=== PATIENT | male | born 1955 | race Caucasian/White ===

== ENCOUNTER 2021-10-28 07:21 | Outpatient (REF) | payer BC, SELFPAY ==
--- NOTE | ~2021-10-28 | XR_ITS ---
EXAMINATION: XR pelvis 1-2V CLINICAL INFORMATION: Reason for Exam M25.559 - Pain in unspecified hip COMPARISON: None. TECHNIQUE: One view of the pelvis XR/XR pelvis 1-2V FINDINGS/IMPRESSION: * No acute fracture or dislocation on this limited single view. * Moderate degenerative changes of the bilateral hips with loss of superolateral joint space. * Moderate degenerative changes of the right sacroiliac joint with loss of joint space.
== END 2021-10-28 07:22 | disposition home or self-care (01) ==
LOC: HO.HOSX 07:21
PROVIDERS: Visit Provider Orthopaedic Surgery
DX: M70.62 Trochanteric bursitis, left hip (principal); M16.12 Unilateral primary osteoarthritis, left hip
CPT/HCPCS: 72170

== ENCOUNTER 2022-05-08 10:19 | Outpatient (REF) | payer BC, SELFPAY ==
--- NOTE | ~2022-05-08 | XR_ITS ---
EXAMINATION: XR BILATERAL AP KNEE STANDING AND LEFT KNEE CLINICAL INFORMATION: Left knee pain. COMPARISON: None TECHNIQUE: AP bilateral knee and left knee 2 views. FINDINGS: AP BILATERAL KNEE: There is mild reduction in medial compartment joint space both knees. No bony erosive changes. There are no loose bodies. No joint effusion. LEFT KNEE: On the lateral view there is a small bone fragment still attached to the anterior tibial plateau question enthesophyte. No acute fracture, joint effusion or bony erosive changes seen. There is mild reduction the patellofemoral compartment joint space. A large calcified fabella is noted. XR/XR knee standing BI IMPRESSION: 1. Mild degenerative changes medial compartment both knees and mild degenerative changes patellofemoral compartment left knee. 2. Small bone fragment adjacent to anterior tibial plateau on the lateral view likely enthesophyte. No acute fracture, joint effusion or loose bodies seen. 3. There is a large calcified fabella or soft tissue calcification posterior knee.
--- NOTE | ~2022-05-08 | XR_ITS ---
EXAMINATION: XR BILATERAL AP KNEE STANDING AND LEFT KNEE CLINICAL INFORMATION: Left knee pain. COMPARISON: None TECHNIQUE: AP bilateral knee and left knee 2 views. FINDINGS: AP BILATERAL KNEE: There is mild reduction in medial compartment joint space both knees. No bony erosive changes. There are no loose bodies. No joint effusion. LEFT KNEE: On the lateral view there is a small bone fragment still attached to the anterior tibial plateau question enthesophyte. No acute fracture, joint effusion or bony erosive changes seen. There is mild reduction the patellofemoral compartment joint space. A large calcified fabella is noted. XR/XR knee LT 2V IMPRESSION: 1. Mild degenerative changes medial compartment both knees and mild degenerative changes patellofemoral compartment left knee. 2. Small bone fragment adjacent to anterior tibial plateau on the lateral view likely enthesophyte. No acute fracture, joint effusion or loose bodies seen. 3. There is a large calcified fabella or soft tissue calcification posterior knee.
== END 2022-05-08 10:20 | disposition home or self-care (01) ==
LOC: HO.HOSX 10:19
PROVIDERS: Visit Provider Orthopaedic Surgery
DX: M17.12 Unilateral primary osteoarthritis, left knee (principal); E11.9 Type 2 diabetes mellitus without complications
CPT/HCPCS: 20610; 73560; 73565; J1100

== ENCOUNTER → 2022-08-10 13:08 | Outpatient (BNVA) | payer BC, SELFPAY | PROVIDERS: PCP Internal Medicine; Visit Provider Orthopaedic Surgery | DX: Z13.89 Encounter for screening for other disorder (principal) ==

== ENCOUNTER 2023-01-16 15:13 | Outpatient (REF) | payer OTHER, BC, SELFPAY ==
--- NOTE | ~2023-01-16 | XR_ITS ---
EXAMINATION: Pre-MRI orbits. COMPARISON: None. HISTORY: History of metal in the eyes many years ago technique: 3 views. FINDINGS: There are no radiopaque metallic foreign body seen in the orbits. The soft tissues are normal. The paranasal sinuses and mastoid air cells are well aerated. There is dental hardware noted. XR/XR pre mri screening IMPRESSION: No radiopaque metallic foreign body seen in the orbits..
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
== END 2023-01-16 15:14 | disposition home or self-care (01) ==
LOC: HO.MRI 15:13
PROVIDERS: PCP Internal Medicine; Visit Provider Orthopaedic Surgery
DX: M23.92 Unspecified internal derangement of left knee (principal)
CPT/HCPCS: 73721

== ENCOUNTER 2023-01-25 09:30 | Outpatient (AMB) | payer BC, SELFPAY ==
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
== END 2023-01-25 11:03 | disposition home or self-care (01) ==
PROVIDERS: PCP Internal Medicine; Visit Provider Orthopaedic Surgery
DX: S83.242A Other tear of medial meniscus, current injury, left knee, initial encounter (principal)
CPT/HCPCS: 99214

== ENCOUNTER → 2023-01-25 09:30 | Outpatient (BNVA) | payer BC, SELFPAY | PROVIDERS: PCP Internal Medicine; Visit Provider Orthopaedic Surgery ==

== ENCOUNTER 2023-02-26 08:28 | Outpatient (AMB) | payer BC, SELFPAY ==
[2023-02-26 08:31] VITALS: BMI 34.7
--- NOTE | 2023-02-26 08:31 | A.OFFVIS_ITS ---
Intake Vital Signs 02/26/23 08:31 Height 5 ft 8 in Weight 228 lb BMI 34.7 Intake Visit Reasons: Pre-Op LT knee 03/07/23NE Intake Note: Moreno is a 67 year old male who presents today for a pre op appointment of left knee 03/07/23. Pain management agreement signed and reviewed Allergies No Known Allergies Allergy (Verified 02/26/23 08:36) HPI HPI Comments History of Present Illness Details Mr Holguin presents to the office today for preop visit. He is scheduled for left knee arthroscopy with Dr. Hu. He continues to have ongoing pain and difficulty with ambulation in the left knee, which is affecting his quality of life; therefore, he has elected to move forward with surgery. [facility] Medical History Diabetes Hyperlipidemia Hypertension Internal derangement of left knee Surgical History Hx of cholecystectomy Social History Patient Tobacco Use Status: Former Tobacco user Quit Date: over 20 years ago Current occupational status: employed Current occupation: Car Sales Review of Systems Const All systems reviewed & are unremarkable except as noted in HPI and below Physical Exam Vital Signs: BMI result Body Mass Index 34.7 Const General: cooperative and no acute distress Orientation/consciousness: patient oriented x3 HEENT Head: Yes normocephalic and Yes atraumatic Eyes General: appearance normal, both eyes and all related structures EOM: EOMs intact bilaterally Neck Neck: Yes normal visual inspection and Yes no lymphadenopathy Resp Effort & Inspection: normal respiratory effort and able to speak in complete sentences Cardio Jugular venous distension: no JVD Rate: regular rate Peripheral pulses: Peripheral pulses 2+ throughout GI Inspection: Yes normal to inspection Palpation (GI): Soft to palpation Skin General skin exam: no rashes or lesions noted Rashes: no rashes Neuro General: patient oriented x3 Extrem Other: Left knee with 10 deg loss of terminal extension + medial Steinmen's Medial joint line TTP + gait antalgia Psych Appearance: grossly normal Mental Status: mental status grossly normal Affect: normal affect Attitude: cooperative Assessment & Plan Assessment & Plan (1) Medial meniscus tear: Code(s): S83.249A - Other tear of medial meniscus, current injury, unspecified knee, initial encounter Qualifiers: Tear current or old: current Encounter type: subsequent encounter Meniscus tear of knee type: other type Laterality: left Qualified Code(s): S83.242D - Other tear of medial meniscus, current injury, left knee, subsequent encounter Plan I discussed the extent of the injury to the patient and options available which include surgical intervention. I explained the procedure in detail along with the length of recovery and rehab course. I explained the risk, benefits and alternatives. Risk including, but not limited to infection, blood clots, bleeding, ongoing pain and stiffness. I answered all their questions and with their understanding they have consented to move forward with left knee arthroscopy with Dr. Hu. The patient will be booked accordingly. Patient Instructions: Scribed for Tez Kessler PA-C, by Isac Ramey site medical director, on 02/26/2023 at 8:30 AM [facility]. Tez Pickett PA-C, have personally reviewed and agree with the information entered by the scribe. Coding Level of Care Code Est Pt Level 3 (72597) Diagnoses Other tear of medial meniscus of left knee as current injury, subsequent encounter S83.242D Tear current or old: current Encounter type: subsequent encounter Meniscus tear of knee type: other type Laterality: left
== END 2023-02-26 09:04 | disposition home or self-care (01) ==
PROVIDERS: PCP Internal Medicine; Visit Provider Physician Assistant
DX: S83.242D Other tear of medial meniscus, current injury, left knee, subsequent encounter (principal)
CPT/HCPCS: 99024

== ENCOUNTER → 2023-02-26 08:28 | Outpatient (BNVA) | payer BC, SELFPAY | PROVIDERS: PCP Internal Medicine; Visit Provider Physician Assistant ==

== ENCOUNTER 2023-03-07 07:28 | Day surgery (SDC) | payer OTHER, BC, SELFPAY ==
[2023-03-05 10:59] VITALS: BMI 34.7
--- NOTE | 2023-03-06 08:53 | P.CONAN_ITS ---
Documented by User: Ema Bell NP 03/06/23 08:56 HPI - Anesthesia Eval Consult details Narrative: 67yo M for Left Knee Arthroscopy PMFSH Active Problems Active Problems: All Active Problems (Updated 02/26/23 @ 08:52 by Tez Kessler PA-C) Medial meniscus tear (Acute) Internal derangement of left knee (Acute) Diabetes mellitus (Acute) Osteoarthritis of left knee (Acute) Greater trochanteric bursitis of left hip (Acute) Osteoarthritis of left hip (Acute) Past Medical History Medical History (Updated 03/07/23 @ 08:55 by Heather Finney) Diverticulosis Severe obesity Seasonal allergies Plaque psoriasis Pulmonary nodules Hypercholesterolemia GERD (gastroesophageal reflux disease) Depression CAD (coronary artery disease) CKD (chronic kidney disease), stage III KALE (obstructive sleep apnea) Heart attack Internal derangement of left knee Hyperlipidemia Hypertension Diabetes Surgical History Surgical History (Updated 03/07/23 @ 08:55 by Heather Finney) H/O heart artery stent Hx of cholecystectomy Social History Social History Patient Tobacco Use Status: Former Tobacco user Quit Date: 1989 Tobacco use type: Cigarette Smoked in Last 30 Days: No Use of substances other than those prescribed or required for medical reasons: No Are you DNR?: No Advance Directives: No Advance Directives Information Provided: Yes Current occupational status: employed Current occupation: [employer] Allergies Allergy/AdvReac Type Severity Reaction Status Date / Time No Known Allergies Allergy Verified 03/07/23 07:44 Home Medications Medication Instructions Recorded Confirmed Last Taken Type adalimumab 40 mg/0.4 mL 40 mg subcut Q2W 10/28/21 03/07/23 Unknown History subcutaneous pen kit (Humira(CF) Pen) aspirin 81 mg tablet,delayed 81 mg PO DAILY 10/28/21 03/07/23 03/06/23 History release atorvastatin 40 mg tablet 40 mg PO DAILY 10/28/21 03/07/23 Unknown History carvedilol 25 mg tablet 25 mg PO BID 10/28/21 03/07/23 03/07/23 History empagliflozin 25 mg tablet 25 mg PO DAILY 10/28/21 03/07/23 Unknown History (Jardiance) lisinopril 20 mg tablet 20 mg PO DAILY 10/28/21 03/07/23 Unknown History pantoprazole 40 mg tablet,delayed 40 mg PO DAILY 10/28/21 03/07/23 03/07/23 History release insulin glargine 100 unit/mL (3 50 unit subcut BEDTIME 05/08/22 03/07/23 03/06/23 09:30 History mL) subcutaneous pen (Lantus 30 units Solostar U-100 Insulin) insulin lispro 100 unit/mL subcut DIRECTED 05/08/22 Unknown History subcutaneous pen (Humalog KwikPen (U-100) Insulin) Exam Exam Date and Time: March 06, 2023 0853 Height,Weight and Vital Signs: Height 5 ft 8 in Weight 103.419 kg Assessment and Plan Assessment Anesthesia Assessment: Chart Reviewed Documented by User: Mychal Henderson MD 03/07/23 08:56 [facility] Past Medical History Medical History (Updated 03/07/23 @ 08:55 by Heather Finney) Diverticulosis Severe obesity Seasonal allergies Plaque psoriasis Pulmonary nodules Hypercholesterolemia GERD (gastroesophageal reflux disease) Depression CAD (coronary artery disease) CKD (chronic kidney disease), stage III KALE (obstructive sleep apnea) Heart attack Internal derangement of left knee Hyperlipidemia Hypertension Diabetes Family History Family history of problems with anesthesia: No Surgical History Surgical History (Updated 03/07/23 @ 08:55 by Heather Finney) H/O heart artery stent Hx of cholecystectomy History of Problems with Anesthesia: No Social History Social History Patient Tobacco Use Status: Former Tobacco user Quit Date: 1989 Tobacco use type: Cigarette Smoked in Last 30 Days: No Use of substances other than those prescribed or required for medical reasons: No Are you DNR?: No Advance Directives: No Advance Directives Information Provided: Yes Current occupational status: employed Current occupation: Car [employer] Meds Allergies Allergy/AdvReac Type Severity Reaction Status Date / Time No Known Allergies Allergy Verified 03/07/23 07:44 Home Medications Medication Instructions Recorded Confirmed Last Taken Type adalimumab 40 mg/0.4 mL 40 mg subcut Q2W 10/28/21 03/07/23 Unknown History subcutaneous pen kit (Humira(CF) Pen) aspirin 81 mg tablet,delayed 81 mg PO DAILY 10/28/21 03/07/23 03/06/23 History release atorvastatin 40 mg tablet 40 mg PO DAILY 10/28/21 03/07/23 Unknown History carvedilol 25 mg tablet 25 mg PO BID 10/28/21 03/07/23 03/07/23 History empagliflozin 25 mg tablet 25 mg PO DAILY 10/28/21 03/07/23 Unknown History (Jardiance) lisinopril 20 mg tablet 20 mg PO DAILY 10/28/21 03/07/23 Unknown History pantoprazole 40 mg tablet,delayed 40 mg PO DAILY 10/28/21 03/07/23 03/07/23 History release insulin glargine 100 unit/mL (3 50 unit subcut BEDTIME 05/08/22 03/07/23 03/06/23 09:30 History mL) subcutaneous pen (Lantus 30 units Solostar U-100 Insulin) insulin lispro 100 unit/mL subcut DIRECTED 05/08/22 Unknown History subcutaneous pen (Humalog KwikPen (U-100) Insulin) Exam Airway Mallampati Class: III TM Dist: >3cm Neck ROM: Limited Heart: rrr Lungs: cta Assessment and Plan Assessment Anesthesia Assessment: Anesthesia Plan Discussed Final Anesthetic Review Family History of Problems with Anesthesia: No History of Problems with Anesthesia: No NPO: Yes ASA Class: III Final Preanesthetic Review: No Changes in Pt Med Stat, Meds/Allgs Chart Reviewed, Consent Obtained/Reviewed and Anes Risks/Benef Reviewed Patient Risk: Intermediate Procedure Risk: Low Anesthetic Plan Anesthetic Plan: GA and Agree w/ Assess. and Plan Disposition: Standard PACU
[2023-03-07] VITALS (9 sets, daily range): BP systolic 109–141; BP diastolic 43–65; PULSE 55–65; RESP 14–18; TEMP 36.4–37.2; O2SAT 93–99; BMI 35.9
[2023-03-07 07:54] LABS: Glucose, Whole Blood 141 mg/dL (60-115)
[2023-03-07] MEDS: Lactated Ringers 1,000 ML 100 ML IVCONT (08:52)
--- NOTE | 2023-03-07 09:29 | MHC.SHP ---
Pre-Procedural Eval Section A Date of Service: 03/07/23 The patient is an INPATIENT: No Changes since office visit: No Cold of Flu in the past 2 weeks, No New Medical Problems, No Changes in Medication and No Patient answered all questions The History & Physical has been completed within 30 days and I have reviewed it.: Yes Section B Chief Complaint: Other tear of medial meniscus, current injury, uns Allergies: Allergies Allergy/AdvReac Type Severity Reaction Status Date / Time No Known Allergies Allergy Verified 03/07/23 07:44 Plan I have reviewed the history and physical and performed a pertinent physical examination on my patient. No changes have occurred unless specified. Time Spent With Patient Time: Total time managing care of this patient today ____ minutes.
--- NOTE | 2023-03-07 11:08 | P.BOP_ITS ---
Brief Operative Note Date of Service: 03/07/23 Pre-op diagnosis: left knee MMT Post-op diagnosis: other (1) left knee MMT 2) left knee OA) Procedure: Left knee partial medial meniscectomy and chondroplasty Surgeon: Les Hu MD Anesthesia: GETA and local Was an Dealer Relationship Manager used for this Procedure?: No Estimated blood loss (mL): 2 Tourniquet time (min): 30 IV fluids (mL): 500 Pathology: none sent Condition: stable Disposition: PACU
--- NOTE | 2023-03-08 13:44 | P.OP_ITS ---
Operative Note Operative Note Date of Service: 03/07/23 Narrative: Date of Service: 03/07/23 Pre-op diagnosis: left knee MMT Post-op diagnosis: other (1) left knee MMT 2) left knee OA) Procedure: Left knee partial medial meniscectomy and chondroplasty Surgeon: Les Hu MD Anesthesia: GETA and local Was an Semiconductor Dies Loader used for this Procedure?: No Estimated blood loss (mL): 2 Tourniquet time (min): 30 IV fluids (mL): 500 Pathology: none sent Condition: stable Disposition: PACU Procedure in detail: Patient was brought to the operating room placed supine on the arthroscopic table and prepped and draped in standard sterile fashion. A time-out was called to identify proper site proper procedure proper surgeon and IV antibiotics per weight were administered. I began by exsanguinating the limb and insufflating tourniquet to 300 mm Hg. Then made a standard anterolateral stab incision. The knee was insufflated with water and 30 degree arthroscope was placed. There was grade 1 fibrillations of the patella but overall suprapatellar pouch was plane and the gutters were clean. I descended into the medial compartment where I made my medial portal under direct visualization. There was obvious of complex tear of the body and posterior horn of the medial meniscus. The root was intact and there was grade 3-4 changes of central portion of the MFC (~1 x 1.5 cm) . I used a combination of biter shaver and cautery to remove unstable portions of the meniscus. Approximately 30% meniscal volume was removed. Once I was satisfied with this the ACL was examined and found to be intact and the lateral compartment also was without the need for intervention. I then removed all instrumentation and closed the portals with skin glue. 25 mL of 2% Marcaine with epinephrine was injected into the joint and the surrounding soft tissues. Patient was then placed in sterile dressing extubated brought recovery room stable condition. There were no known complications.
== END 2023-03-07 12:30 | disposition home or self-care (01) ==
LOC: HO.SSS 07:29
PROVIDERS: PCP Internal Medicine; Visit Provider Orthopaedic Surgery
PROC: (CPT 29870; principal; 2023-03-07 09:40)
DX: S83.232A Complex tear of medial meniscus, current injury, left knee, initial encounter (principal); M17.12 Unilateral primary osteoarthritis, left knee; M25.562 Pain in left knee; R26.2 Difficulty in walking, not elsewhere classified; X58.XXXA Exposure to other specified factors, initial encounter; Y93.9 Activity, unspecified; Y92.9 Unspecified place or not applicable; Y99.8 Other external cause status; E11.22 Type 2 diabetes mellitus with diabetic chronic kidney disease; I12.9 Hypertensive chronic kidney disease with stage 1 through stage 4 chronic kidney disease, or unspecified chronic kidney disease; N18.30 Chronic kidney disease, stage 3 unspecified; G60.0 Hereditary motor and sensory neuropathy; I25.10 Atherosclerotic heart disease of native coronary artery without angina pectoris; I25.2 Old myocardial infarction; E78.5 Hyperlipidemia, unspecified; Z95.5 Presence of coronary angioplasty implant and graft; G47.33 Obstructive sleep apnea (adult) (pediatric); L40.0 Psoriasis vulgaris; Z79.620 Long term (current) use of immunosuppressive biologic; Z79.4 Long term (current) use of insulin; Z87.891 Personal history of nicotine dependence
CPT/HCPCS: 29881; 82947; J0171; J0690; J1100; J2405; J2795; J3010

== ENCOUNTER → 2023-03-07 07:28 | Outpatient (BNV) | payer BC, SELFPAY | PROVIDERS: PCP Internal Medicine; Visit Provider Orthopaedic Surgery | DX: S83.232A Complex tear of medial meniscus, current injury, left knee, initial encounter (principal) | CPT/HCPCS: 29881 ==

== ENCOUNTER 2023-03-12 13:06 | Outpatient (AMB) | payer BC, SELFPAY ==
--- NOTE | 2023-03-12 13:10 | MHC.OFFVIS ---
Intake Intake Visit Reasons: PO LT knee 03/07/23NE Intake Note: Moreno a 67 year old male who presents today for a post operative left knee , DOS 03/07/23. Patient reports having soreness and stiffness in calf area. He has complaints of lower back, stating possibly caused by him limping. Finds relief with pain medication. Allergies No Known Allergies Allergy (Verified 03/12/23 13:22) HPI PO LT knee 03/07/23NE HPI Details Mr. Holguin is a 67-year-old male who presents the office today status post left knee arthroscopy for partial medial meniscectomy with chondroplasty performed by Dr. Hu on 03/07/2023. Patient overall states that he is doing very well. Does have slight discomfort in the knee located along the medial aspect. Reports that he has had calf pain and charley horse sensations/cramping. [facility] Medical History (Updated 03/07/23 @ 08:55 by Heather Finney) Diverticulosis Severe obesity Seasonal allergies Plaque psoriasis Pulmonary nodules Hypercholesterolemia GERD (gastroesophageal reflux disease) Depression CAD (coronary artery disease) CKD (chronic kidney disease), stage III KALE (obstructive sleep apnea) Heart attack Internal derangement of left knee Hyperlipidemia Hypertension Diabetes Surgical History H/O heart artery stent Hx of cholecystectomy Social History Patient Tobacco Use Status: Former Tobacco user Quit Date: 1989 Tobacco use type: Cigarette Current occupational status: employed Current occupation: Car Sales Physical Exam Const General: cooperative, healthy appearing and no acute distress Resp Effort & Inspection: normal respiratory effort and able to speak in complete sentences Cardio Rate: regular rate Peripheral pulses: Peripheral pulses 2+ throughout GI Palpation (GI): Soft to palpation Skin Lesions: no lesions Rashes: no rashes Extrem Other: Left knee incision sites clean dry and intact. Mild effusion. Range of motion 0-110 degrees. Calf is supple however tenderness with calf squeeze and positive Homans. NVI. Assessment & Plan Assessment & Plan (1) Medial meniscus tear: Code(s): S83.249A - Other tear of medial meniscus, current injury, unspecified knee, initial encounter Qualifiers: Tear current or old: current Encounter type: subsequent encounter Meniscus tear of knee type: other type Laterality: left Qualified Code(s): S83.242D - Other tear of medial meniscus, current injury, left knee, subsequent encounter Plan: Mr. Holguin is a 67-year-old male who presents the office today status post left knee arthroscopy for partial medial meniscectomy with chondroplasty performed by Dr. Hu on 03/07/2023. Patient overall states that he is doing very well. Does have slight discomfort in the knee located along the medial aspect. Reports that he has had calf pain and charley horse sensations/cramping. Patient reports that he has appointment with physical therapy beginning on Sunday03-14-23. He will attend to work on range of motion. In regards the patient's calf pain and cramping a stat ultrasound has been ordered to rule out DVT. An appointment has been october before the patient has left the office today. Follow up with Orthopedics in 4 weeks sooner if needed for [id number] check. Orders: Orders US venous duplex LE Today S83.249A - Other tear of medial meniscus, current injury, unspecified knee, initial encounter Coding Level of Care Code Global (12689) Diagnoses Other tear of medial meniscus of left knee as current injury, subsequent encounter S83.242D Tear current or old: current Encounter type: subsequent encounter Meniscus tear of knee type: other type Laterality: left
== END 2023-03-12 14:31 | disposition home or self-care (01) ==
PROVIDERS: PCP Internal Medicine; Visit Provider Physician Assistant
DX: S83.242D Other tear of medial meniscus, current injury, left knee, subsequent encounter (principal)
CPT/HCPCS: 99024

== ENCOUNTER → 2023-03-12 13:06 | Outpatient (BNVA) | payer BC, SELFPAY | PROVIDERS: PCP Internal Medicine; Visit Provider Physician Assistant ==

== ENCOUNTER 2023-03-12 14:12 | Outpatient (REF) | payer OTHER, BC, SELFPAY ==
--- NOTE | ~2023-03-12 | US_ITS ---
EXAMINATION: US VENOUS ULTRASOUND WITH DOPPLER LOWER EXTREMITY, LEFT CLINICAL INFORMATION: Other tear medial meniscus, current injury, unspecified knee Status post knee arthroscopy 03/07/2023. Calf pain and swelling. Positive Homans sign. COMPARISON: None available. TECHNIQUE: Ultrasound of the deep veins is performed from the hip to the calf with compression sonography and color and pulse Doppler assessment. Spectral analysis with color-flow imaging is performed. FINDINGS: There is normal venous compression and respiratory variation and augmented flow. The visualized common femoral vein, superficial femoral vein, profunda femoral vein, popliteal vein, and the trifurcation region shows no evidence of deep venous thrombosis. There is no significant popliteal fossa cyst. US/US venous duplex LE LT IMPRESSION: No DVT demonstrated in the left lower extremity.
== END 2023-03-12 14:13 | disposition home or self-care (01) ==
LOC: HO.US 14:12
PROVIDERS: PCP Internal Medicine; Visit Provider Physician Assistant
DX: R60.0 Localized edema (principal); S83.242A Other tear of medial meniscus, current injury, left knee, initial encounter
CPT/HCPCS: 93971

== ENCOUNTER 2023-04-17 13:00 | Outpatient (RCR) | payer OTHER, BC, SELFPAY ==
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
--- NOTE | 2023-05-29 08:32 | MHC.PT.DC ---
[facility] [place] Office [place] Office [place] Office [address] Cecilio Ashraf [address] [phone] F: [phone] F: [phone] F: [phone] F: [phone] Physical Therapy Discharge Report Diagnosis: other tear of medial meniscus, current injury, left knee unspecified internal derangement of left knee service date: 03/07/2023 medial meniscss tear internal derangement of left knee Date of Surgery: 03/07/23 Date of Evaluation: 03/20/23 Date of Discharge: 05/29/23 Treatments to Date: 8 Cancellations to Date: 1 No Shows to Date: 2 Discharge Status: Improved Function Independent with HEP Discharge Summary: Pt made good progress with less reported pain and I with HEP. He had just RTW and increased his number of steps/day (may walk up to 8000 steps at work) and reported some soreness at the end of the day. Educated pt to trial ice at end of work day to help with residual soreness. He did not f/u with last two visits and is now d/c Electronically signed by: Willow Ball PT Please sign and return to therapist. Thank you for your referral.
== END 2023-05-29 08:32 | disposition home or self-care (01) ==
LOC: HO.PT 13:00
PROVIDERS: PCP Internal Medicine; Visit Provider Physician Assistant
DX: S83.242D Other tear of medial meniscus, current injury, left knee, subsequent encounter (principal); M23.92 Unspecified internal derangement of left knee
CPT/HCPCS: 97110; 97162; 97530

== ENCOUNTER 2023-07-20 08:34 | Outpatient (REF) | payer OTHER, BC, SELFPAY ==
--- NOTE | ~2023-07-20 | XR_ITS ---
EXAMINATION: X-ray bilateral standing knee X-ray left knee CLINICAL INDICATION: Pain. COMPARISON: Prior radiographs dated 05/08/2022. TECHNIQUE: AP bilateral standing view. Lateral and sunrise view of the left knee. FINDINGS: Left knee: Suspect mild patella adiel. Stable well-corticated osseous fragment adjacent to the anterior tibial plateau on the lateral view. No acute fractures or subluxation. Joint effusion. Standing view: No fracture or subluxation. Mild to moderate joint space narrowing in the medial compartment of both knees. XR/XR knee LT 2V IMPRESSION: 1. Possible patella adiel in the left knee. 2. Joint effusion in the left knee. 3. Mild to moderate joint space narrowing of the medial compartments in both knees.
--- NOTE | ~2023-07-20 | XR_ITS ---
EXAMINATION: X-ray bilateral standing knee X-ray left knee CLINICAL INDICATION: Pain. COMPARISON: Prior radiographs dated 05/08/2022. TECHNIQUE: AP bilateral standing view. Lateral and sunrise view of the left knee. FINDINGS: Left knee: Suspect mild patella adiel. Stable well-corticated osseous fragment adjacent to the anterior tibial plateau on the lateral view. No acute fractures or subluxation. Joint effusion. Standing view: No fracture or subluxation. Mild to moderate joint space narrowing in the medial compartment of both knees. XR/XR knee standing BI IMPRESSION: 1. Possible patella adiel in the left knee. 2. Joint effusion in the left knee. 3. Mild to moderate joint space narrowing of the medial compartments in both knees.
== END 2023-07-20 08:35 | disposition home or self-care (01) ==
LOC: HO.HOSX 08:34
PROVIDERS: PCP Internal Medicine; Visit Provider Physician Assistant
DX: M17.12 Unilateral primary osteoarthritis, left knee (principal); E11.9 Type 2 diabetes mellitus without complications; S83.242D Other tear of medial meniscus, current injury, left knee, subsequent encounter
CPT/HCPCS: 20610; 73560; 73565; J1020

== ENCOUNTER 2023-07-20 08:34 | Outpatient (AMB) | payer OTHER, BC, SELFPAY ==
--- NOTE | 2023-07-20 08:38 | A.OFFVIS_ITS ---
Intake Intake Visit Reasons: ov- S/P LT knee 03/07/23NE Intake Note: Moreno is a 67 year old male who presents today for a ROM check s/p left knee , DOS 03/07/23. Patient reports having throbbing pain at night in the medial aspect of the knee. He states that he had this pain since surgery. Hx of taking excedrin mild relief. Allergies No Known Allergies Allergy (Verified 07/20/23 08:40) HPI ov- S/P LT knee 03/07/23NE HPI Details 67-year-old male who presents in the off ice today for a ROM check; 4 months status post left knee arthroscopy for partial medial meniscectomy with chondroplasty performed by Dr. Hu on 03/07/2023. I last saw the patient in the office on 03/12/2023 when he was supposed to begin physical therapy. An ultrasound for calf pain was ordered. While in the office today the patient reports a throbbing pain in the medial aspect of the left knee. He states he has had pain since the surgery. Patient has a history of taking Excedrin with mild relief. [facility] Medical History (Updated 07/20/23 @ 08:44 by Joyce Douglass) Diverticulosis Severe obesity Seasonal allergies Plaque psoriasis Pulmonary nodules Hypercholesterolemia GERD (gastroesophageal reflux disease) Depression CAD (coronary artery disease) CKD (chronic kidney disease), stage III KALE (obstructive sleep apnea) Heart attack Internal derangement of left knee Hyperlipidemia Hypertension Diabetes Surgical History H/O heart artery stent Hx of cholecystectomy Social History Patient Tobacco Use Status: Former Tobacco user Quit Date: 1989 Tobacco use type: Cigarette Current occupational status: employed Current occupation: Car Sales Review of Systems Const All systems reviewed & are unremarkable except as noted in HPI and below Physical Exam Const General: cooperative, healthy appearing and no acute distress Resp Effort & Inspection: normal respiratory effort and able to speak in complete sentences Cardio Rate: regular rate Peripheral pulses: Peripheral pulses 2+ throughout GI Palpation (GI): Soft to palpation Skin Lesions: no lesions Rashes: no rashes Extrem Other: Left knee: Normal to inspection. No ecchymosis, erythema, or joint effusion. No tenderness to palpation to the lateral joint line. Slight tenderness to palpation to the medial joint line. Full knee extension and flexion. Negative Chilo's. Negative anterior drawer. NVI. Office Procedures Joint Injection/Drain Joint Injection/Drain Primary Site: left knee Prep: site was prepped using aseptic technique, ethochloride spray was applied and injection warnings given Injected: 40 mg of, DepoMedrol, with 8 mL of (2% plain lido ) and in the joint Approach Used: anterolateral Procedure: The patient tolerated the procedure well, but had some pain with the injection and there was some relief with the local anesthesia Coding 59541 - Large joint Procedure code (CPT) selection complete Assessment & Plan Assessment & Plan (1) Osteoarthritis of left knee: Code(s): M17.12 - Unilateral primary osteoarthritis, left knee (2) Medial meniscus tear: Comment: Left knee arthroscopy for partial medial meniscectomy with chondroplasty 03/07/2023 Dr. Les Hu Code(s): S83.249A - Other tear of medial meniscus, current injury, unspecified knee, initial encounter Qualifiers: Encounter type: subsequent encounter Laterality: left Meniscus tear of knee type: other type Tear current or old: current Qualified Code(s): S83.242D - Other tear of medial meniscus, current injury, left knee, subsequent encounter (3) Diabetes mellitus: Code(s): E11.9 - Type 2 diabetes mellitus without complications Plan Mr. Holguin is a 67-year-old male who presents in the office today for a ROM check; 4 months status post left knee arthroscopy for partial medial meniscectomy with chondroplasty performed by Dr. Hu on 03/07/2023. I last saw the patient in the office on 03/12/2023 when he was supposed to begin physical therapy. An ultrasound for calf pain was ordered. While in the office today the patient reports a throbbing pain in the medial aspect of the left knee. He states he has had pain since the surgery. Patient has a history of taking Excedrin with mild relief. The patient was offered a cortisone injection in the left knee with 40 mg of DepoMedrol. The patient was explained the risk, benefits, and alternatives to receiving this injection. After receiving consent for the injection, the patient had the procedure done while in office today. The patient tolerated the procedure well with no complications. Due to the patient?s history of diabetes, they were instructed to monitor his blood glucose level. The patient was informed that they could see a rise in their numbers and if the numbers became too high, they were instructed to call their PCP. The patient was also informed that they could have facial flushing as a side effect of the injection but this will pass. Follow up will be PRN, or sooner if needed. X-rays of the left knee which were obtained while in the office today and were reviewed by me, Doretha Richard PA-C, revealed significant medial compartment osteoarthritis. Orders: Orders XR knee standing BI Today M25.569 - Pain in unspecified knee XR knee LT 2V Today M25.569 - Pain in unspecified knee Patient Instructions: Scribed by Joyce Douglass medical staffing coordinator, for Doretha Richard PA-C on 07/20/2023 at 8:36 am, EST. Coding Level of Care Code Est Pt Level 4 (35258) Diagnoses Osteoarthritis of left knee M17.12 Other tear of medial meniscus of left knee as current injury, subsequent encounter S83.242D Encounter type: subsequent encounter Laterality: left Meniscus tear of knee type: other type Tear current or old: current Diabetes mellitus E11.9 CPT Codes Coding - 73339 Large joint: 17492 - Large joint ([id number])
== END 2023-07-20 09:11 | disposition home or self-care (01) ==
PROVIDERS: PCP Internal Medicine; Visit Provider Physician Assistant
DX: M17.12 Unilateral primary osteoarthritis, left knee (principal); S83.242D Other tear of medial meniscus, current injury, left knee, subsequent encounter; E11.9 Type 2 diabetes mellitus without complications
CPT/HCPCS: 20610; 99214

== ENCOUNTER 2023-09-11 14:53 | Outpatient (AMB) | payer BC, SELFPAY ==
--- NOTE | 2023-09-11 15:11 | HO.NEPHOV ---
Vital Signs 09/11/23 15:13 Height 5 ft 8 in Weight 244 lb 4 oz BMI 37.1 BP 130/50 L Blood Pressure Location Lt brachial Position Sitting Pulse 66 Pulse Source Pulse Oximeter Pulse Oximetry (%) 94 Oxygen Delivery Method Room Air Intake Visit Reasons: Kidney Functions/ Confirmed Life Skills Educator Required: No Accompanied by: Spouse Allergies No Known Allergies Allergy (Verified 09/11/23 15:15) HPI Comments Details: I had the privilege of seeing Moreno in consultation for CKD on a backdrop of DM and hypertension. He has gained significant amount of weight over last many years. He denies retinopathy or significant proteinuria. His A1c has been good. He is on SGLT2 i as well as ACEI. He has h/o CAD needing PCI. He takes NSAID's as on a needed basis. His serum creatinine has been fairly stable. He is not extremely active. He denies any H/O CAROL ANN, PAD, CVA, CHF, new bone or back pain. He is hypertensive and his BP has been well controlled on current medication regimen. His last serum creatinine has been 1.5. He denies epistaxis, micro or macroscopic hematuria, senorineural deafness, joint swelling, sore throat, sinusitis, worsening pedal edema, hypoglycemias. He is anxious about his renal dysfunction. He has been taking PPI for a long time. There were no specific complaints at the time of this office visit. [facility] Medical History (Updated 10/01/23 @ 17:25 by Jose Matute MD) Diverticulosis Severe obesity Seasonal allergies Plaque psoriasis Pulmonary nodules Hypercholesterolemia GERD (gastroesophageal reflux disease) Depression CAD (coronary artery disease) CKD (chronic kidney disease), stage III KALE (obstructive sleep apnea) Heart attack Internal derangement of left knee Hyperlipidemia Hypertension Diabetes Surgical History H/O heart artery stent Hx of cholecystectomy Social History Patient Tobacco Use Status: Former Tobacco user Quit Date: 1989 Tobacco use type: Cigarette Current occupational status: employed Current occupation: Car Sales Physical Exam Vital Signs: Last Vital Signs Pulse 66 09/11/23 15:13 BP 130/50 L 09/11/23 15:13 Pulse Ox 94 09/11/23 15:13 Oxygen Delivery Method Room Air 09/11/23 15:13 BMI result Body Mass Index 37.1 Const General: comfortable and no acute distress Orientation/consciousness: patient oriented x3 HEENT Head: Yes normocephalic Mouth: Normal oral and palatal mucosa present Eyes EOM: EOMs intact bilaterally Neck Neck: Yes supple Resp Auscultation: clear to auscultation bilaterally Cardio Jugular venous distension: no JVD Rate: regular rate GI Palpation (GI): Soft to palpation Auscultation: normal bowel sounds General: Yes no CVA tenderness Back/Spine/Pelvis Back: no CVA tenderness Skin General skin exam: no rashes or lesions noted Neuro General: patient oriented x3 and moves all extremities Results Reviewed Nephrology Results: No Data to Display Assessment & Plan Assessment & Plan (1) CKD stage 3a, GFR 45-59 ml/min: Code(s): N18.31 - Chronic kidney disease, stage 3a Category: Medical (2) Hypertension: Code(s): I10 - Essential (primary) hypertension Category: Medical Qualifiers: Hypertension type: primary hypertension Qualified Code(s): I10 - Essential (primary) hypertension Plan Likely etiology for CKD is vasculr disease and DM. He has H/O CAD needing PCI. His serum creatinine is currently stable. He is on ACEI as well as SGLT2i. He needs to loose weight. I have ordered basic work up as well as renal imaging. He needs to lose weight. I shall do a 24 hour urine for cr cl, protein along with Doppler of renal arteries at next visit following review of preliminary work up. He should avoid NSAID's and maintian good hydration. There is no indication for renal biopsy now. All questions answered. F/U given Orders: Orders Calcium 09/11/23 N18.31 - Chronic kidney disease, stage 3a Protein Creatinine Ratio, Ur 09/11/23 N18.31 - Chronic kidney disease, stage 3a US renal doppler 09/11/23 N18.31 - Chronic kidney disease, stage 3a Electrolytes 09/11/23 N18.31 - Chronic kidney disease, stage 3a Blood Urea Nitrogen 09/11/23 N18.31 - Chronic kidney disease, stage 3a Creatinine 09/11/23 N18.31 - Chronic kidney disease, stage 3a Creatinine Clearance Urine 24U 09/11/23 N18.31 - Chronic kidney disease, stage 3a Immunofixation Pnl, Serum 09/11/23 N18.31 - Chronic kidney disease, stage 3a US renal BI 09/11/23 N18.31 - Chronic kidney disease, stage 3a
[2023-09-11 15:13] VITALS: BP 130/50; PULSE 66; O2SAT 94; BMI 37.1
== END 2023-09-11 16:01 | disposition home or self-care (01) ==
PROVIDERS: PCP Internal Medicine; Visit Provider Internal Medicine Nephrology
DX: N18.31 Chronic kidney disease, stage 3a (principal); I10 Essential (primary) hypertension
CPT/HCPCS: 99204

== ENCOUNTER → 2023-09-11 14:53 | Outpatient (BNVA) | payer BC, SELFPAY | PROVIDERS: PCP Internal Medicine; Visit Provider Internal Medicine Nephrology ==

== ENCOUNTER 2023-10-12 07:41 | Outpatient (REF) | payer BC, SELFPAY ==
--- NOTE | ~2023-10-12 | US_ITS ---
EXAMINATION: ULTRASOUND RENAL WITH DOPPLER CLINICAL INFORMATION: Chronic kidney disease. COMPARISON: None. TECHNIQUE: Real-time grayscale, color Doppler, and duplex Doppler evaluation of the kidneys and renal vasculature was performed. FINDINGS: RENAL MEASUREMENTS: Right: 10.3 x 5.0 x 4.7 cm (Sag x AP x TV) Left: 11.9 x 5.0 x 5.2 cm (Sag x AP x TV) The renal parenchyma appears normal. No hydronephrosis or nephrolithiasis. DOPPLER INTERROGATION: AORTA: Mid aorta: 123 cm/sec RIGHT MAIN RENAL ARTERY: Proximal: 92 cm/sec Mid: 88 cm/sec Distal: 118 cm/sec LEFT MAIN RENAL ARTERY: Proximal: 92 cm/sec Mid: 170 cm/sec Distal: 99 cm/sec RENAL-AORTIC RATIO (RAR): Right: Not calculated due to mid aortic velocity outside of range 40-100 cm/s making RAR inaccurate. Left: Not calculated due to mid aortic velocity outside of range 40-100 cm/s making RAR inaccurate. SEGMENTAL RESISTIVE INDICES: Right: 0.74-0.76 Left: 0.74-0.81 RENAL VEINS: Right: Patent with normal waveform. Left: Patent with normal waveform. US/US renal BI IMPRESSION: No evidence of hemodynamically significant renal artery stenosis. The renal parenchyma appears normal. No hydronephrosis.
--- NOTE | ~2023-10-12 | US_ITS ---
EXAMINATION: ULTRASOUND RENAL WITH DOPPLER CLINICAL INFORMATION: Chronic kidney disease. COMPARISON: None. TECHNIQUE: Real-time grayscale, color Doppler, and duplex Doppler evaluation of the kidneys and renal vasculature was performed. FINDINGS: RENAL MEASUREMENTS: Right: 10.3 x 5.0 x 4.7 cm (Sag x AP x TV) Left: 11.9 x 5.0 x 5.2 cm (Sag x AP x TV) The renal parenchyma appears normal. No hydronephrosis or nephrolithiasis. DOPPLER INTERROGATION: AORTA: Mid aorta: 123 cm/sec RIGHT MAIN RENAL ARTERY: Proximal: 92 cm/sec Mid: 88 cm/sec Distal: 118 cm/sec LEFT MAIN RENAL ARTERY: Proximal: 92 cm/sec Mid: 170 cm/sec Distal: 99 cm/sec RENAL-AORTIC RATIO (RAR): Right: Not calculated due to mid aortic velocity outside of range 40-100 cm/s making RAR inaccurate. Left: Not calculated due to mid aortic velocity outside of range 40-100 cm/s making RAR inaccurate. SEGMENTAL RESISTIVE INDICES: Right: 0.74-0.76 Left: 0.74-0.81 RENAL VEINS: Right: Patent with normal waveform. Left: Patent with normal waveform. US/US renal doppler IMPRESSION: No evidence of hemodynamically significant renal artery stenosis. The renal parenchyma appears normal. No hydronephrosis.
== END 2023-10-12 07:42 | disposition home or self-care (01) ==
LOC: HO.US 07:41
PROVIDERS: PCP Internal Medicine; Visit Provider Internal Medicine Nephrology
DX: N18.31 Chronic kidney disease, stage 3a (principal)
CPT/HCPCS: 76775; 93975

== ENCOUNTER 2024-01-10 11:06 | Outpatient (AMB) | payer BC, SELFPAY ==
--- NOTE | 2024-01-10 11:19 | MHC.OFFVIS ---
Vital Signs 01/10/24 11:20 Height 5 ft 8 in Weight 244 lb BMI 37.1 Intake Visit Reasons: OV - Left Knee OA Intake Note: Moreno is a 67 year old male who presents today a follow up of his left knee OA, he has history of left knee , DOS 03/07/23. Left knee was last injected on 07/20/23 with Doretha Hilary. Patient reports that this injection was only mildly helpful. He has tried and failed taking Tylenol and ibuprofen as well as physical therapy. He is interested in trying a gel injection. Allergies No Known Allergies Allergy (Verified 01/10/24 11:22) HPI HPI OV - Left Knee OA: Details: Moreno is a 67 year old male who presents today a follow up of his left knee OA, he has history of left knee , DOS 03/07/23. Left knee was last injected on 07/20/23 with Doretha Hilary. Patient reports that this injection was only mildly helpful. He has tried and failed taking Tylenol and ibuprofen as well as physical therapy. He is interested in trying a gel injection. [facility] Medical History Diverticulosis Severe obesity Seasonal allergies Plaque psoriasis Pulmonary nodules Hypercholesterolemia GERD (gastroesophageal reflux disease) Depression CAD (coronary artery disease) CKD (chronic kidney disease), stage III KALE (obstructive sleep apnea) Heart attack Internal derangement of left knee Hyperlipidemia Hypertension Diabetes Surgical History H/O heart artery stent Hx of cholecystectomy Social History Patient Tobacco Use Status: Former Tobacco user Tobacco use type: Cigarette Current occupational status: employed Current occupation: Car Sales Physical Exam Vital Signs: BMI result Body Mass Index 37.1 Extrem Other: ttp medial compartment trace effusion 5-125 deg motion stiff and antalgic gait Assessment & Plan Assessment & Plan (1) Osteoarthritis of left knee: Code(s): M17.12 - Unilateral primary osteoarthritis, left knee Category: Medical Plan: Left knee OA. minimally helpful. Steroids have never been that helpful. I recommend viscosupplementation Coding Level of Care Code Est Pt Level 3 (27803) Diagnoses Osteoarthritis of left knee M17.12
[2024-01-10 11:20] VITALS: BMI 37.1
== END 2024-01-10 11:38 | disposition home or self-care (01) ==
PROVIDERS: PCP Internal Medicine; Visit Provider Orthopaedic Surgery
DX: M17.12 Unilateral primary osteoarthritis, left knee (principal)
CPT/HCPCS: 99213

== ENCOUNTER → 2024-01-10 11:06 | Outpatient (BNVA) | payer BC, SELFPAY | PROVIDERS: PCP Internal Medicine; Visit Provider Orthopaedic Surgery ==

== ENCOUNTER 2024-03-11 14:55 | Outpatient (AMB) | payer BC, SELFPAY ==
--- NOTE | 2024-03-11 15:01 | HO.NEPHOV_ITS ---
Vital Signs 03/11/24 15:03 Height 5 ft 8 in Weight 232 lb 4 oz BMI 35.3 BP 116/50 L Blood Pressure Location Lt brachial Position Sitting Pulse 66 Pulse Source Pulse Oximeter Pulse Oximetry (%) 94 Oxygen Delivery Method Room Air Intake Visit Reasons: 6 mon follow up- Conf Line Prep Cook Required: No Accompanied by: Self / Same As Patient Allergies No Known Allergies Allergy (Verified 03/11/24 15:05) HPI Comments Details: I had the privilege of seeing Moreno in follow up for CKD on a backdrop of DM and hypertension. He has gained significant amount of weight over last many years. He denies retinopathy or significant proteinuria. His A1c has been good. He is on SGLT2 i as well as ACEI. He has h/o CAD needing PCI. He takes NSAID's as on a needed basis. His serum creatinine has been fairly stable. He is not extremely active. He denies any H/O CAROL ANN, PAD, CVA, CHF, new bone or back pain. He is hypertensive and his BP has been well controlled on current medication regimen. His last serum creatinine has been 1.5. He denies epistaxis, micro or macroscopic hematuria, senorineural deafness, joint swelling, sore throat, sinusitis, worsening pedal edema, hypoglycemias.He has been taking PPI for a long time. There were no specific complaints at the time of this office visit. PENDING SALE TO [facility] Medical History Diverticulosis Severe obesity Seasonal allergies Plaque psoriasis Pulmonary nodules Hypercholesterolemia GERD (gastroesophageal reflux disease) Depression CAD (coronary artery disease) CKD (chronic kidney disease), stage III KALE (obstructive sleep apnea) Heart attack Internal derangement of left knee Hyperlipidemia Hypertension Diabetes Surgical History H/O heart artery stent Hx of cholecystectomy Social History Patient Tobacco Use Status: Former Tobacco user Tobacco use type: Cigarette Current occupational status: employed Current occupation: Car Sales Review of Systems Const All systems reviewed & are unremarkable except as noted in HPI and below Physical Exam Vital Signs: Last Vital Signs Pulse 66 03/11/24 15:03 BP 116/50 L 03/11/24 15:03 Pulse Ox 94 03/11/24 15:03 Oxygen Delivery Method Room Air 03/11/24 15:03 BMI result Body Mass Index 35.3 Const General: comfortable and no acute distress Orientation/consciousness: patient oriented x3 HEENT Head: Yes normocephalic Mouth: Normal oral and palatal mucosa present Eyes EOM: EOMs intact bilaterally Neck Neck: Yes supple Resp Auscultation: clear to auscultation bilaterally Cardio Jugular venous distension: no JVD Rate: regular rate GI Palpation (GI): Soft to palpation Auscultation: normal bowel sounds General: Yes no CVA tenderness Back/Spine/Pelvis Back: no CVA tenderness Skin General skin exam: no rashes or lesions noted Neuro General: patient oriented x3 and moves all extremities Extrem General: Yes no pedal edema Results Reviewed Nephrology Results: Renal US 10/12/23 Assessment & Plan Assessment & Plan (1) CKD stage 3a, GFR 45-59 ml/min: Code(s): N18.31 - Chronic kidney disease, stage 3a Category: Medical (2) Hypertension: Code(s): I10 - Essential (primary) hypertension Category: Medical Qualifiers: Hypertension type: primary hypertension Qualified Code(s): I10 - Essential (primary) hypertension Plan Likely etiology for CKD is vascular disease and DM. He has H/O CAD needing PCI. His serum creatinine had been stable. He is on ACEI as well as SGLT2i. He needs to loose weight. His renal imaging was normal. He needs to lose weight and has been initiated on Ozempic. I shall do a 24 hour urine for cr cl, protein . He should avoid NSAID's and maintian good hydration. There is no indication for renal biopsy now. All questions answered. F/U given Orders: Orders Parathyroid Hormone Intact Today I10 - Essential (primary) hypertension, N18.31 - Chronic kidney disease, stage 3a Vitamin D 25-OH Total Today I10 - Essential (primary) hypertension, N18.31 - Chronic kidney disease, stage 3a Coding Level of Care Code Est Pt Level 4 (53483) Diagnoses CKD stage 3a, GFR 45-59 ml/min N18.31 Primary hypertension I10 Hypertension type: primary hypertension
[2024-03-11 15:03] VITALS: BP 116/50; PULSE 66; O2SAT 94; BMI 35.3
== END 2024-03-11 15:26 | disposition home or self-care (01) ==
PROVIDERS: PCP Internal Medicine; Visit Provider Internal Medicine Nephrology
DX: N18.31 Chronic kidney disease, stage 3a (principal); I10 Essential (primary) hypertension
CPT/HCPCS: 99214

== ENCOUNTER → 2024-03-11 14:55 | Outpatient (BNVA) | payer BC, SELFPAY | PROVIDERS: PCP Internal Medicine; Visit Provider Internal Medicine Nephrology ==

== ENCOUNTER 2024-05-06 10:10 | Outpatient (AMB) | payer BC, SELFPAY ==
--- NOTE | 2024-05-06 10:11 | A.OFFVIS_ITS ---
Intake Visit Reasons: OV - Left Knee OA - Gel Denied Intake Note: Moreno is a 68 year old female who presents today for a follow up of his left knee OA. At his last visit it was recommend that he trial gel injections however his insurance will not cover them. Today he would like to discuss alternative treatment options. history of left knee , DOS 03/07/23 Allergies No Known Allergies Allergy (Verified 05/06/24 10:11) HPI HPI OV - Left Knee OA - Gel Denied: Details: Moreno is a 68 year old female who presents today for a follow up of his left knee OA. At his last visit it was recommend that he trial gel injections however his insurance will not cover them. Today he would like to discuss alternative treatment options. History of left knee , DOS 03/07/23 . He states that the surgery was helpful but that over the last couple of months he has been having gaxp-ad-zktzfvjf and occasional knee pain. Steroid injections have been minimally helpful and we appeal to his insurance company for viscosupplementation. His had this and was very helpful even though she went onto knee replacement. [facility] Medical History Diverticulosis Severe obesity Seasonal allergies Plaque psoriasis Pulmonary nodules Hypercholesterolemia GERD (gastroesophageal reflux disease) Depression CAD (coronary artery disease) CKD (chronic kidney disease), stage III KALE (obstructive sleep apnea) Heart attack Internal derangement of left knee Hyperlipidemia Hypertension Diabetes Surgical History H/O heart artery stent Hx of cholecystectomy Social History Patient Tobacco Use Status: Former Tobacco user Tobacco use type: Cigarette Current occupational status: employed Current occupation: Car Sales Physical Exam Extrem Other: ttp medial compartment trace effusion 5-125 deg motion stiff and antalgic gait Office Procedures Joint Inj/Aspir; Non-Pain Clin Joint Injection/Drain Details: Injected 1 mL of Decadron and 3 mL 1% lidocaine and 3 mL of 0.25% Marcaine. Site was prepped using aseptic technique. Patient tolerated the procedure well. Approach Used: anterolateral Shoulders, Hips, Knees, Knee Large Joint Injection : Left Knee Coding Procedure code (CPT) selection complete Assessment & Plan Assessment & Plan (1) Osteoarthritis of left knee: Code(s): M17.12 - Unilateral primary osteoarthritis, left knee Category: Medical Plan: I injected the left knee today with corticosteroid. I still recommend viscosupplementation and we will try to get that done but insurance is not approving it at this time. Orders: Orders XR pelvis 1-2V 05/06/24 M25.559 - Pain in unspecified hip Coding Level of Care Code Est Pt Level 3 (44453) Diagnoses Osteoarthritis of left knee M17.12 CPT Codes Shoulders, Hips, Knees, - Knee Large Joint Injection : Left Knee ([id number])
== END 2024-05-06 11:55 | disposition home or self-care (01) ==
PROVIDERS: PCP Internal Medicine; Visit Provider Orthopaedic Surgery
DX: M17.12 Unilateral primary osteoarthritis, left knee (principal)
CPT/HCPCS: 20610; 99213

== ENCOUNTER 2024-05-06 10:10 | Outpatient (REF) | payer BC, SELFPAY | END 2024-05-06 10:11 | disposition home or self-care (01) | LOC: HO.HOSX 10:10 | PROVIDERS: PCP Internal Medicine; Visit Provider Orthopaedic Surgery | DX: M25.559 Pain in unspecified hip (principal); M17.12 Unilateral primary osteoarthritis, left knee | CPT/HCPCS: 20610; 72170; J0665; J1100; J2003 ==

== ENCOUNTER 2024-07-03 08:59 | Outpatient (AMB) | payer BC, SELFPAY ==
--- NOTE | 2024-07-03 09:00 | MHC.OFFVIS ---
Vital Signs 07/03/24 09:02 Height 5 ft 8 in Weight 232 lb BMI 35.3 Intake Visit Reasons: OV - Left Knee Pain - Denied Gel - Discuss Options Intake Note: Moreno is a 68 year old male who presents today for a follow up of his Left Knee OA. Patient has tried and failed cortisone injections with minmal relief. We have tried to obtain authorization for viscosupplementation, but it was denied by insurance. We submitted for an appeal, which was also denied at the insurance company deems viscosupplementation as not medically nessecary. Patient would like to discuss alternative treatment options today. Allergies No Known Allergies Allergy (Verified 07/03/24 09:02) HPI HPI OV - Left Knee Pain - Denied Gel - Discuss Options: Details: Moreno is a 68 year old male who presents today for a follow up of his Left Knee OA. Patient has tried and failed cortisone injections with minmal relief. We have tried to obtain authorization for viscosupplementation, but it was denied by insurance. We submitted for an appeal, which was also denied at the insurance company deems viscosupplementation as not medically nessecary. Patient would like to discuss alternative treatment options today. He describes pain during work that worsens throughout the day and is preventing him from sleeping or engaging in recreational activities outside of work. He is becoming more and more frustrated that the pain is not improving. Intraoperatively he had severe arthritis of the medial compartment. This is where his pain is. He has no anterior lateral left knee pain. [facility] Medical History Diverticulosis Severe obesity Seasonal allergies Plaque psoriasis Pulmonary nodules Hypercholesterolemia GERD (gastroesophageal reflux disease) Depression CAD (coronary artery disease) CKD (chronic kidney disease), stage III KALE (obstructive sleep apnea) Heart attack Internal derangement of left knee Hyperlipidemia Hypertension Diabetes Surgical History H/O heart artery stent Hx of cholecystectomy Social History Patient Tobacco Use Status: Former Tobacco user Tobacco use type: Cigarette Current occupational status: employed Current occupation: Car Sales Physical Exam Vital Signs: BMI result Body Mass Index 35.3 Extrem Other: Full range of motion with stable Hira's and no varus or valgus malalignment or instability. He has tenderness over the medial compartment. Trace effusion. Assessment & Plan Assessment & Plan (1) Osteoarthritis of left knee: Code(s): M17.12 - Unilateral primary osteoarthritis, left knee Category: Medical Plan: A 68-year-old gentleman with ongoing left knee pain. He has pain with walking activities that worsen throughout the day and causes him difficulty sleeping at night. He states the pain has been getting worse and steroid injections have not been helpful. We discussed 3 options. One is to refer him to pain management for periarticular nerve injections. The 2nd option is PRP injection. I reviewed the risks benefits and alternatives of this. The 3rd option is a medial compartment Uni compartmental arthroplasty. I reviewed the risks, benefits and alternatives of this surgery with him including pain, stiffness, infection, aseptic loosening, need for further surgeries, incomplete symptom resolution, adjacent compartment pain. He expressed understanding and will let me know how he would like to proceed forward. My recommendation for him is a unicompartmental arthroplasty of the left knee. Coding Level of Care Code Est Pt Level 4 (28602) Diagnoses Osteoarthritis of left knee M17.12
[2024-07-03 09:02] VITALS: BMI 35.3
--- OUTSIDE RECORDS SUMMARY | 2024-07-03 09:38 | XMS_ITS | Continuity of Care Document ---
Author Organization [facility] Address [address] [place] [address] [facility] Name Relationship Address Phone JANICE DOAN Unknown Unavailable LEWIS, TUCKER Personal Relationship Unknown Unavai lable LEWIS, TUCKER Personal Relationship Unknown Unavai lable MAGALY, TUCKER Personal Relationship Unknown Un available MAGALY, TUCKER Personal Relationship Unknown Un available MAGALY, TUCKER Other Unknown Unavailable MAGALY, TUCKER Personal Relationship Unknown Un available MAGALY, TUCKER Personal Relationship Unknown Un available MAGALY, TUCKER Other Unknown Unavailable MAGALY, TUCKER Personal Relationship Unknown Un available LEWIS, TUCKER Personal Relationship Unknown Unavai lable LEWIS, KENDAL Personal Relationship Unknown Unavai lable LEWIS, TUCKER Other Unknown Unavailable LEWIS, KENDAL Personal Relationship Unknown Unavai lable MAGALY, TUCKER Other Unknown Unavailable MAGALY, TUCKER Personal Relationship Unknown Un available LEWIS, TUCKER Personal Relationship Unknown Unavai lable Care Team Providers Care Mophead Trimmer And Wrapper Name Role Phone Lane Loyd MD Primary Care Physician Encounter [facility] [id number] Date(s): 05/16/24 - 06/20/24 [facility] [address] [place] [address] Attending Physician: Shad Marie MD Admitting Physician: Shad Marie MD Referring Physician: Lane Loyd MD Encounter Type: Pre-OutPatient One Time Allergies, Adverse Reactions, Alerts No Known Allergies Immunizations Given and Recorded Vaccine Date Status Refusal Reason tetanus/diphtheria/pertussis, acel(Tdap) 09/06/22 Given tetanus/diphtheria/pertussis, acel(Tdap) 02/26/12 Given SARS-CoV-2 (COVID-19) mRNA-1273 vaccine 06/06/21 R ecorded influenza virus vaccine, inactivated 05/03/21 Give n influenza virus vaccine, inactivated 03/13/20 Give n influenza virus vaccine, inactivated 04/25/19 Give n influenza virus vaccine, inactivated 04/01/18 Give n influenza virus vaccine, inactivated 1 03/28/17 Gi nirav influenza virus vaccine, inactivated 03/11/16 Anthony rded influenza virus vaccine, inactivated 02/22/16 Anthony rded influenza virus vaccine, inactivated 03/11/15 Anthony rded influenza virus vaccine, inactivated 2 03/11/14 Re corded influenza virus vaccine, inactivated 3 04/11/13 Re corded influenza virus vaccine, inactivated 4 05/07/12 Gi nirav SARS-CoV-2 (COVID-19) mRNA BNT-162b2 vac 11/01/20 Recorded SARS-CoV-2 (COVID-19) mRNA BNT-162b2 vac 10/11/20 Recorded pneumococcal 13-valent vaccine 04/25/19 Given pneumococcal 23-valent vaccine 02/26/12 Given FluLaval (oldterm) 5 03/01/11 Given tetanus-diphtheria toxoids (Td) 6 07/21/07 Given 1Admin Note: [facility] [id number] 2Location History: Jazmin Anna 3Result Comment: [10/21/2013] Jazmin Anna 4Admin Note: VIS 12/11/2011 5Admin Note: DECLINED 6Admin Note: historical data Problem List Condition Confirmation Course Effective Dates Status Health Status Informant Atypical chest pain - Gastirc/esophageal in origin wth good response to pantoprazole. Confirmed Active Chronic kidney disease (CKD), stage III (moderate) Confirmed Active Colon, diverticulosis 1 Confirmed 03/04/12 Active Coronary artery disease-PTCA/2 stents for [place] 2002 Confirmed Active Depression Confirmed Active Diabetes mellitus type 2 Confirmed Active Supraclavicular fossa fullness Confirmed Active GERD (gastroesophageal reflux disease) Confirmed Active Chronic left hip pain Confirmed Active Hypercholesterolemia Confirmed Active Hypertension Confirmed Active Macrocytic anemia 2 Confirmed Active Male hypogonadism Confirmed 01/20/22 Active Memory impairment Confirmed Active Multiple pulmonary nodules 3 Confirmed 03/09/20 Active Obese class I Confirmed Active Moderate obstructive sleep apnea Confirmed Active Plaque psoriasis Confirmed Active Seasonal allergic rhinitis Confirmed Active 1along with external hemorrhoids, given quality of the prep would repeat colonoscopy in 5 years 2017 [address]169: B12 level, folic acid level and TSH is normal. 2012: MAME and Multiple myeloma ruled out. 3<2 mm, prior hx of smoking >30 years ago. Social History Social History Type Response Smoking Status Former smoker, quit more than 30 days ago; Type: Cigarettes; Stopped at age: 34; entered on: 01/16/22 Sex Sex Representation Male (finding) Patient Care team information Care Team Personnel Name: Giovani Rider DO Position: [facility] Renal MD Member Role: Lifetime Consulting Physician Address: [address] [place], [place] [address] [place] [address]- Telecom: Name: Eusebia Garrett RN Position: S RN Member Role: Primary Care Nurse Name: Norberto Mejia RN Position: S RN Member Role: Primary Care Nurse Name: Lane Loyd MD Position: [facility] Physician - Primary Care Member Role: PCP Address: [address] [place] [address]- Telecom: Name: Sylvie Mario RN, I Position: [facility] RN Member Role: Primary Care Nurse Care Team Related Persons Name: JANICE DOAN Name: TUCKER MCKENZIE Name: TUCKER MCKENZIE Name: TUCKER LEWIS Insurance Providers Guarantor name: WALI LEWIS Health Plan Information #: 1 Payer: [employer] Member Number: [id number] Policy Number: NA Group Number: [id number] Health Plan Information #: 2 Payer: OUT OF STATE PLANS Member Number: NA Policy Number: NA Group Number: NA
--- OUTSIDE RECORDS SUMMARY | 2024-07-03 09:38 | XMS_ITS | Continuity of Care Document ---
Author Organization [facility] Address [address] [place] [address] [facility] Name Relationship Address Phone JANICE DOAN Unknown [...] Unknown Unavai lable Care Team Providers Care Processing Manager Name Role Phone Rach CAMP, Lane W Primary Care Physician [phone] Encounter [facility] ACCT R [id number] Date(s): 05/21/24 - 06/20/24 [facility] [address] [place] [address]- Attending Physician: Porfirio Carter Admitting Physician: Porfirio Carter Referring Physician: Porfirio Carter Encounter Type: Triage Allergies, Adverse Reactions, Alerts No Known Allergies [...] toxoids (Td) 6 07/21/07 Given 1Admin Note: [facility][note 2] [id number] 2Location History: Jazmin Anna 3Result Comment: [10/21/2013] [...] 03/04/12 Active Coronary artery disease-PTCA/2 stents for [place] 2002 Confirmed Active Depression Confirmed Active Diabetes [...] would repeat colonoscopy in 5 years 2017 [address]606: B12 level, folic acid level and TSH [...] Team Personnel Name: Giovani Rider DO Position: [facility] Renal MD Member Role: Lifetime Consulting Physician Address: [address] [place], [place] [address] [place] [address]- Telecom: Name: Eusebia Garrett RN Position: S RN Member Role: Primary Care Nurse Name: Norberto Mejia RN Position: [facility] RN Member Role: Primary Care Nurse Name: Lane Loyd MD Position: [facility] Physician - Primary Care Member Role: PCP Address: [address] [place] [address]- Telecom: Name: Sylvie Mario RN, I Position: [facility] RN Member Role: Primary Care Nurse Care Team Related Persons Name: JANICE DOAN Name: TUCKER MCKENZIE Name: TUCKER MCKENZIE Name: TUCKER LEWIS Insurance Providers Guarantor name: WALI LEWIS Health Plan Information #: 1 Payer: OUT OF STATE PLANS Member Number: NA Policy Number: NA Group Number: NA
--- OUTSIDE RECORDS SUMMARY | 2024-07-03 09:38 | XMS_ITS | Continuity of Care Document ---
Author Organization [facility] Address [address] [place] [address] [facility] Name Relationship [...] Unknown Unavai lable Care Team Providers Care Retail Aide Name Role Phone Rach CAMP, Lane W Primary Care Physician [facility])[phone] Encounter [facility] Date(s): 05/16/24 - 06/15/24 [facility] [address] [place] [address] Encounter Type: Triage Allergies, Adverse Reactions, Alerts [...] toxoids (Td) 6 07/21/07 Given 1Admin Note: [facility] [id number] 2Location History: Jazmin Anna 3Result Comment: [10/21/2013] [...] 03/04/12 Active Coronary artery disease-PTCA/2 stents for [place] 2002 Confirmed Active Depression Confirmed Active Diabetes [...] prep would repeat colonoscopy in 5 years ie 2017 : B12 level, folic acid level and TSH is normal. 2012: MAME and Multiple myeloma ruled out. 3<2 mm, prior hx of smoking >30 years ago. Social History Social History Type Response Smoking Status Former smoker, quit more than 30 days ago; Type: Cigarettes; Stopped at age: 34; entered on: 01/16/22 Sex Sex Representation Male (finding) Patient Care team information Care Team Personnel Name: RiderRyland kim DOel Dorothy Position: [facility] Renal MD Member Role: Lifetime Consulting Physician Address: [address] [place], [place] [address] [place] [address]- [place] Telecom: Name: Eusebia Garrett RN Position: S RN Member Role: Primary Care Nurse Name: Norberto Mejia RN Position: [facility] RN Member Role: Primary Care Nurse Name: Lane Loyd MD Position: [facility] Physician - Primary Care Member Role: PCP Address: [address] [place] [address] [place] [address]- Telecom: Name: Sylvie Mario RN, I Position: [facility] RN Member Role: Primary Care Nurse Care Team Related Persons Name: JANICE DOAN Name: TUCKER MCKENZIE Name: TUCKER MCKENZIE Name: TUCKER LEWIS Insurance Providers Guarantor name: WALI LEWIS Health Plan Information #: 1 Payer: OUT OF STATE PLANS Member Number: NA Policy Number: NA Group Number: NA
--- OUTSIDE RECORDS SUMMARY | 2024-07-03 09:39 | XMS_ITS | Continuity of Care Document ---
Author Organization [facility] Address [address] [place] [address]- Care Team Providers Care Specimen Transporter Name Role Phone Rach CAMP, Lane W Primary Care Physician Encounter [facility] NBR [id number] Date(s): 07/02/24 - 07/02/[address] [address]- Discharge Disposition: A-D/C Home Attending Physician: Norbert Astorga MD Admitting Physician: Norbert Astorga MD Referring Physician: Norbert Astorga MD Encounter Type: Disch Daystay Allergies, Adverse Reactions, Alerts No Known Allergies [...] toxoids (Td) 6 07/21/07 Given 1Admin Note: [facility] [id number] 2Location History: [facility] 3Result Comment: [10/21/2013] [...] 03/04/12 Active Coronary artery disease-PTCA/2 stents for [place] 2002 Confirmed Active Depression Confirmed Active Diabetes [...] would repeat colonoscopy in 5 years ie 2016: B12 level, folic acid level and TSH is normal. 2011: MAME and Multiple myeloma ruled out. 3<2 mm, prior hx of smoking >30 years ago. Vital Signs Most recent to oldest [Reference Range]: 1 2 3 Height 173 cm (07/02/24 11:01 AM) Oxygen Saturation [94-100 %] 96 % (07/02/24 12:50 PM) 95 % (07/02/24 12:46 PM) 94 % (07/02/24 12:37 PM) Pulse Rate [55-90 bpm] 58 bpm (07/02/24 11:01 AM) Blood Pressure [90-138/55-84 mm Hg] 146/66mm Hg *H* (07/02/24 12:46 PM) 138/62mm Hg (07/02/24 12:37 PM) 141/90mm Hg *H* (07/02/24 12:32 PM) Respiratory Rate [16-30 br/min] 22 br/min (07/02/24 12:50 PM) 19 br/min (07/02/24 12:46 PM) 19 br/min (07/02/24 12:37 PM) Temperature [96.8-100.4 DegF] 98.2 DegF (07/02/24 11:01 AM) Mode of Delivery (Oxygen) Room air (07/02/24 12:46 PM) Room air (07/02/24 12:37 PM) Room air (07/02/24 12:16 PM) Blood pressure sites Arm, left (07/02/24 12:16 PM) Arm, left (07/02/24 11:01 AM) Temperature Route Temporal (07/02/24 11:01 AM) Dry Weight 103.8 kg (07/02/24 11:01 AM) Dry Weight Obtained Via Standing scale (07/02/24 11:01 AM) Social History Social History Type Response Smoking Status Former smoker, quit more than 30 days ago; Type: Cigarettes; Stopped at age: 34; entered on: 01/16/22 Sex Sex Representation Male (finding) Hospital Progress note * Candido RN, Mackenzie: PERFORM, SIGN, VERIFY Event Display: Progress Note Hospital Authored Date: [id number] Patient: WALI LEWIS Age: 68 years Sex: Male : 1955 Associated Diagnoses: None Author: Mackenzie Rey RN Findings Narrative/Incidental Attempted to reach patient for upcoming colonscopy/upper endoscopy on 07/02/24.Left voice message with instrucitons to call [phone] with any questions regarding prep/diet/medictions.. Patient Care team information Care Team Personnel Name: Giovani Rider DO Position: [facility] Renal MD Member Role: Lifetime Consulting Physician Address: [address] [place], [place] [address] [place] [address]- Telecom: Name: Eusebia Garrett RN Position: S RN Member Role: Primary Care Nurse Name: Norberto Mejia RN Position: S RN Member Role: Primary Care Nurse Name: Lane Loyd MD Position: [facility] Physician - Primary Care Member Role: PCP Address: [address] [place] [address] [place] [address]- Telecom: Name: Sylvie Mario RN, I Position: [facility] RN Member Role: Primary Care Nurse Care Team Related Persons Name: JANICE DOAN Name: TUCKER MCKENZIE Name: TUCKER MCKENZIE Name: TUCKER LEWIS Insurance Providers Guarantor name: WALI LEWIS Health Plan Information #: 1 Payer: OUT OF STATE PLANS Member Number: [id number] Policy Number: NA Group Number: [id number] Health Plan Information #: 2 Payer: [employer] Member Number: [id number] Policy Number: NA Group Number: [id number]
--- OUTSIDE RECORDS SUMMARY | 2024-07-03 09:39 | XMS_ITS | Continuity of Care Document ---
Author Organization [facility] Address [address] [place] [address]- Care Team Providers Care Food Cashier Name Role Phone Rach CAMP, Lane W Primary Care Physician Encounter [facility] NBR [id number] Date(s): 07/02/24 - 07/02/[address] [address]- Discharge Disposition: A-D/C Home Attending Physician: Norbert [...] toxoids (Td) 6 07/21/07 Given 1Admin [facility] [id number] 2Location History: [facility] 3Result Comment: [10/21/2013] [...] 03/04/12 Active Coronary artery disease-PTCA/2 stents for [place] 2002 Confirmed Active Depression Confirmed Active Diabetes [...] Event Display: Progress Note Hospital Authored Date: [id number] Patient: WALI LEWIS Age: 68 years Sex: Male : 1955 Associated Diagnoses: None Author: Mackenzie Rey RN Findings Narrative/Incidental Attempted to reach patient for upcoming colonscopy/upper endoscopy on 07/02/24.Left voice message with instrucitons to call [phone] with any questions regarding prep/diet/medictions.. Patient Care team information Care Team Personnel Name: Giovani Rider DO Position: [facility] Renal MD Member Role: Lifetime Consulting Physician Address: [address] [place], [place] [address] [place] [address]- Telecom: Name: Eusebia Garrett RN Position: S RN Member Role: Primary Care Nurse Name: Norberto Mejia RN Position: S RN Member Role: Primary Care Nurse Name: Lane Loyd MD Position: [facility] Physician - Primary Care Member Role: PCP Address: [address] [place] [address] [place] [address]- Telecom: Name: Sylvie Mario RN, I Position: [facility] RN Member Role: Primary Care Nurse Care Team Related Persons Name: JANICE DOAN Name: TUCKER MCKENZIE Name: TUCKER MCKENZIE Name: TUCKER LEWIS Insurance Providers Guarantor name: WALI LEWIS Health Plan Information #: 2 Payer: [employer] Member Number: [id number] Policy Number: NA Group Number: [id number] Health Plan Information #: 1 Payer: OUT OF STATE PLANS Member Number: [id number] Policy Number: NA Group Number: [id number]
== END 2024-07-03 09:32 | disposition home or self-care (01) ==
PROVIDERS: PCP Internal Medicine; Visit Provider Orthopaedic Surgery
DX: M17.12 Unilateral primary osteoarthritis, left knee (principal)
CPT/HCPCS: 99214

== ENCOUNTER → 2024-10-17 08:44 | Outpatient (BNVA) | payer BC, SELFPAY | PROVIDERS: PCP Internal Medicine | DX: Z01.818 Encounter for other preprocedural examination (principal) ==

== ENCOUNTER 2024-11-13 08:30 | Outpatient (REF) | payer BC, SELFPAY ==
--- NOTE | ~2024-11-13 | XR_ITS ---
CLINICAL HISTORY: M25.562 - Pain in left knee --- Additional Notes or Special Instructions: pre op Standing AP view of both knees, 2 additional views of the left knee. Comparison: None Findings: No fractures or dislocations. Moderately severe medial compartment joint space narrowing. Moderate-sized left knee joint effusion. No radiopaque foreign body. IMPRESSION: No definite fracture or malalignment. Advanced degenerative changes most pronounced within the medial compartment of the left knee. Moderate left knee joint effusion. This document has been electronically signed by: Westley Mcadams MD on 11/14/2024 19:16:59
--- OUTSIDE RECORDS SUMMARY | 2024-11-13 08:48 | XMS_ITS | Clinical Summary ---
Author Organization [facility] Address [address] [place] [address] Care Team Providers Care Oxygen Therapist Name Role Phone Lane Loyd MD Primary Care Provider [phone] Allergies No known active allergies Medications No [...] Vaccine: 50+ Years (3 of 3 - PCV20 or PCV21) 06/20/2019 04/25/2019, 02/26/2012 Diabetes: Hemoglobin A1C 12/18/2023 Diabetes: Ophthalmology Exam 12/18/2023 Diabetes: Pedal Pulse Checked 12/18/2023 Diabetes: Sensory Foot Exam 12/18/2023 Diabetes: Visual Foot Exam 12/18/2023 Influenza Vaccine (Season Ended) 2025 03/01/2011 Hepatitis B Vaccine Aged Out No longe r eligible based on patient's age to complete this topic Insurance [facility] Care Teams Oxygen Therapist Relationship Specialty Start Date End Date Lane Loyd MD [address] [place] [address] PCP - General Internal Medicine 08/13/23
[2024-11-13 17:35] LABS: Estimated Average Glucose 128 mg/dL; Hemoglobin A1c % 6.1 % (<6.0)
== END 2024-11-13 08:31 | disposition home or self-care (01) ==
LOC: HO.HOSX 08:30
PROVIDERS: Visit Provider Physician Assistant
DX: E11.9 Type 2 diabetes mellitus without complications (principal); M25.562 Pain in left knee
CPT/HCPCS: 36415; 73562; 83036

== ENCOUNTER 2024-11-13 14:47 | Outpatient (AMB) | payer BC, SELFPAY ==
--- NOTE | 2024-11-13 15:27 | MHC.OFFVIS ---
Vital Signs 11/13/24 15:29 Height 5 ft 8 in Weight 232 lb BMI 35.3 Intake Visit Reasons: Pre-Op: Dorothy UKA w/NE 11/18/24 Intake Note: Moreno is a 69 year old male who presents for a preoperative of unicompartmental arthroplasty of the left knee on 11/18/24. Pain management agreement reviewed and signed. Allergies No Known Allergies Allergy (Verified 11/13/24 15:29) Medication List - Last Reconciled 11/13/24 by Tez Kessler PA-C adalimumab (Humira(CF) Pen) 40 mg subcut Q2W amlodipine 10 mg PO DAILY aspirin 81 mg PO DAILY atorvastatin 40 mg PO DAILY carvedilol 25 mg PO BID empagliflozin (Jardiance) 25 mg PO DAILY insulin glargine (Lantus Solostar U-100 Insulin) 40 units subcut BEDTIME insulin lispro (Humalog KwikPen (U-100) Insulin) 15 units subcut DIRECTED lisinopril 40 mg PO DAILY omega 8-kwa-euk-fish oil 1,000 (120-180) mg (Fish Oil) 1 cap PO DAILY pantoprazole 40 mg PO DAILY semaglutide (Ozempic) 0.25 mg subcut QWEEK walker Folding Front wheeled walker DURATION 99 DAYS HPI Comments Details: Mr Holguin presents to the office today for preop visit. He is scheduled for left unicompartment knee arthroplasty with Dr. Hu. He continues to have ongoing pain and difficulty with ambulation in the left knee, which is affecting his quality of life; therefore, he has elected to move forward with surgery. Patient lives at home with his . He has a walker. He plans to DC home with VNA post op Denies ho DVT, Cancer or current smoker. He has stopped his [employer] [facility] Medical History (Updated 10/22/24 @ 12:57 by Deyanira France RN) COVID-19 Skin cancer Arthritis Back pain Kidney stones Cardiomyopathy Diverticulosis Severe obesity Seasonal allergies Plaque psoriasis Pulmonary nodules Hypercholesterolemia GERD (gastroesophageal reflux disease) Depression CAD (coronary artery disease) CKD (chronic kidney disease), stage III KALE (obstructive sleep apnea) Heart attack Internal derangement of left knee Hyperlipidemia Hypertension Diabetes Surgical History Hx of left knee surgery Hx of local excision of skin lesion History of esophagogastroduodenoscopy (EGD) H/O colonoscopy H/O heart artery stent Hx of cholecystectomy Social History Are you a primary ostomy care nurse to a significant other at home: No Do you presently have visiting nurse or other home services: No Patient Tobacco Use Status: Former Tobacco user Tobacco use type: Cigarette Current occupational status: employed Current occupation: Car Sales Review of Systems Const All systems reviewed & are unremarkable except as noted in HPI and below Physical Exam Vital Signs: BMI result Body Mass Index 35.3 Const General: cooperative, healthy appearing, comfortable, no acute distress, well developed and alert Orientation/consciousness: patient oriented x3 HEENT Head: Yes normal to inspection, Yes normocephalic and Yes atraumatic Eyes General: appearance normal, both eyes and all related structures Neck Neck: Yes normal visual inspection and Yes no lymphadenopathy Resp Effort & Inspection: normal respiratory effort and able to speak in complete sentences Cardio Rate: regular rate Peripheral pulses: Peripheral pulses 2+ throughout GI Inspection: Yes normal to inspection Palpation (GI): Soft to palpation Skin General skin exam: no rashes or lesions noted Neuro General: patient oriented x3 Extrem Other: Full range of motion with stable Hira's and no varus or valgus malalignment or instability. He has tenderness over the medial compartment. Trace effusion. Psych Appearance: grossly normal Mental Status: mental status grossly normal Results Reviewed Results Reviewed: Xrays were obtained in the office today and personally reviewed by me of the left knee obtained for surgical plannig. Assessment & Plan Assessment & Plan (1) Osteoarthritis of left knee: Code(s): M17.12 - Unilateral primary osteoarthritis, left knee Category: Medical Plan: I discussed in detail the procedure and what to expect pre and post operatively. We discussed the risks, benefits and alternatives to the surgery as well as the rehabilitation course. The risks; which include, but are not limited to infection, bleeding, nerve injury, ongoing pain, swelling, and stiffness, perioperative risk of injury to bones and soft tissues, and blood clots. I?ve answered all questions and with their understanding they have consented to move forward with Left total knee arthroplasty with Dr. Hu Plan is to DC home with A. He was given an order for outpatient PT to begin after 12/04/24 post op appt He has CKD III, avoid nephrotoxins ( celebrex, ASA).-Lovenox post op Orders: Orders XR knee LT 3V Today M25.562 - Pain in left knee Type and Screen 25 Days Z01.818 - Encounter for other preprocedural examination Hemoglobin A1c Today E11.9 - Type 2 diabetes mellitus without complications PT Evaluation and Treatment Today Z96.652 - Presence of left artificial knee joint Coding Level of Care Code Est Pt Level 3 (07119) Complex EM visit Add On G2211 Diagnoses Osteoarthritis of left knee M17.12
[2024-11-13 15:29] VITALS: BMI 35.3
--- OUTSIDE RECORDS SUMMARY | 2024-11-13 17:25 | XMS_ITS | Clinical Summary ---
Author Organization [facility] Address [address] [place] [address] Care Team Providers Care Garage Attendant Name Role Phone Lane Loyd MD Primary Care Provider [phone] Allergies No known active allergies Medications No [...] patient's age to complete this topic Insurance [facility] Care Teams Garage Attendant Relationship Specialty Start Date End Date Lane Loyd MD [address] [place] [address] PCP - General Internal Medicine 08/13/23
== END 2024-11-13 16:38 | disposition home or self-care (01) ==
LOC: HO.HOS 14:48
PROVIDERS: PCP Internal Medicine; Visit Provider Physician Assistant
DX: M17.12 Unilateral primary osteoarthritis, left knee (principal)
CPT/HCPCS: 99213

== ENCOUNTER → 2024-11-13 15:08 | Outpatient (BNV) | payer BC, SELFPAY | PROVIDERS: Visit Provider Radiology Vascular & Interventional Radiology | DX: M17.12 Unilateral primary osteoarthritis, left knee (principal); M25.462 Effusion, left knee | CPT/HCPCS: 73562 ==

== ENCOUNTER 2024-11-18 06:00 | Day surgery (SDC) | payer BC, SELFPAY ==
--- OUTSIDE RECORDS SUMMARY | 2024-09-30 14:22 | XMS_ITS | Clinical Summary ---
Author Organization [facility] Address [address] [place] [address] Care Team Providers Care Supervisor [employer] Name Role Phone Lane Loyd MD Primary Care Provider [phone] Allergies No known active allergies Medications No known medications Active Problems Problem Noted Date Diagnosed Date Chronic kidney disease stage 3A 12/17/2023 Social History Tobacco Use Types Packs/Day Years Used Date Smoking Tobacco: Never Assessed Sex and Gender Information Value Date Recorded Sex Assigned at Not on file Legal Sex Male 11:26 AM EST Gender Identity Not on file Sexual Orientation Not on file Last Filed Vital Signs Vital Sign Reading Time Taken Comments Blood Pressure 122/76 12/18/2023 6:33 PM EDT Pulse 72 12/18/2023 6:33 PM EDT Temperature - - Respiratory Rate - - Oxygen Saturation - - Inhaled Oxygen Concentration - - Weight - - Height - - Body Mass Index - - Plan of Treatment Health Maintenance Due Date Last Done Comments Colorectal Cancer Screening: Annual FOBT 2002 Colorectal Cancer Screening: Colonoscopy 2002 Colorectal Cancer Screening: Sigmoidoscopy 2002 Pneumococcal Vaccine: 50+ Years (3 of 3 - PPSV23, PCV20 or PCV21) 06/20/2019 04/25/2019, 02/26/2012 Diabetes: Hemoglobin A1C 12/18/2023 Diabetes: Ophthalmology Exam 12/18/2023 Diabetes: Pedal Pulse Checked 12/18/2023 Diabetes: Sensory Foot Exam 12/18/2023 Diabetes: Visual Foot Exam 12/18/2023 Influenza Vaccine (Season Ended) 2025 03/01/2011 Hepatitis B Vaccine Aged Out No longe r eligible based on patient's age to complete this topic Insurance [facility] Care Teams Supervisor [employer] Mill Relationship Specialty Start Date End Date Lane Loyd MD [address] [place] [address]. [address] [place] [address] PCP - General Internal Medicine 08/13/23
--- OUTSIDE RECORDS SUMMARY | 2024-09-30 14:23 | XMS_ITS | Encounter Summary ---
Author Organization [facility] Address [address] [place] [address] Phone Care Team Providers Care Stone Setter Apprentice Name Role Phone Lane Loyd MD Primary Care Provider [phone] Encounter Details Date Type Department Care Team (Late st Contact Info) Description 08/13/2023 Documentation Only [facility], [address] [place] [address] [place] [address] [place] [id number] Social History Tobacco Use Types Packs/Day Years Used Date Smoking Tobacco: Never Assessed Sex and Gender Information Value Date Recorded Sex Assigned at Not on file Legal Sex Male 11:26 AM EST Gender Identity Not on file Sexual Orientation Not on file documented as of this encounter Plan of Treatment Not on file documented as of this encounter Visit Diagnoses Not on filedocumented in this encounter Care Teams Stone Setter Apprentice Relationship Specialty Start Date End Date Lane Loyd MD [address] [place] [address] PCP - General Internal Medicine 08/13/23 documented as of this encounter
[2024-10-22 12:20] VITALS: BP 140/66; PULSE 67; RESP 18; O2SAT 97; BMI 34.8
--- NOTE | 2024-10-22 12:53 | P.CONAN_ITS ---
Documented by User: Ema Bell NP 11/14/24 14:11 HPI - Anesthesia Eval Consult details Narrative: 68yo M for Left Knee Replacement Uni-Compartmental, 11/18/24 Medically optimized per [facility] preop clinic Cardiac optimized. Follows [facility] cardiology for: CAD s/p PCI 2001, resolved cardiomyopathy Follows [facility] Renal for CKD r/t DM, htn. Stable at 03/2024 visit. Creat 1.09 in 08/2024 No recent illness No CP or SOB with walking at work - up to 10k steps on car lot DM: FBS ~ 130-140 KALE: No CPAP per pt choice Anesthesia Pre-Procedure Meds Is the patient on any of the following meds?: GLP1/DPP4 and SGLT2 Inhib PMFSH Active Problems Active Problems: All Active Problems CKD stage 3a, GFR 45-59 ml/min (Acute) Medial meniscus tear (Acute) Diabetes mellitus (Acute) Osteoarthritis of left knee (Acute) Greater trochanteric bursitis of left hip (Acute) Osteoarthritis of left hip (Acute) Hypertension (Acute) Internal derangement of left knee (Acute) Past Medical History Medical History COVID-19 Skin cancer Arthritis Back pain Kidney stones Cardiomyopathy Diverticulosis Severe obesity Seasonal allergies Plaque psoriasis Pulmonary nodules Hypercholesterolemia GERD (gastroesophageal reflux disease) Depression CAD (coronary artery disease) CKD (chronic kidney disease), stage III KALE (obstructive sleep apnea) Heart attack Internal derangement of left knee Hyperlipidemia Hypertension Diabetes Family History Family history of problems with anesthesia: No Surgical History Surgical History Hx of left knee surgery Hx of local excision of skin lesion History of esophagogastroduodenoscopy (EGD) H/O colonoscopy H/O heart artery stent Hx of cholecystectomy History of Problems with Anesthesia: No Social History Social History Are you a primary respiratory care program director to a significant other at home: No Do you presently have visiting nurse or other home services: No Patient Tobacco Use Status: Former Tobacco user Tobacco use type: Cigarette Use of substances other than those prescribed or required for medical reasons: No Have you been hit, kicked, punched, or otherwise hurt by someone within the past year? If so, by whom?: No Are you DNR?: No Advance Directives: No Advance Directives Information Provided: Yes Advance Directives on File: No Poor oral hygiene: Yes Current occupational status: employed Current occupation: [employer] Allergies Allergy/AdvReac Type Severity Reaction Status Date / Time No Known Allergies Allergy Verified 11/13/24 15:29 Home Medications ?Medication ?Instructions ?Recorded ?Confirmed ?Last Taken ?Type adalimumab 40 mg/0.4 mL 40 mg subcut Q2W 10/28/21 11/13/24 Unknown History subcutaneous pen kit (Humira(CF) Pen) aspirin 81 mg tablet,delayed 81 mg PO DAILY 10/28/21 11/13/24 03/06/23 History release atorvastatin 40 mg tablet 40 mg PO DAILY 10/28/21 11/13/24 Unknown History carvedilol 25 mg tablet 25 mg PO BID 10/28/21 11/13/24 11/18/24 History empagliflozin 25 mg tablet 25 mg PO DAILY 10/28/21 11/13/24 11/14/24 History (Jardiance) insulin glargine 100 unit/mL (3 40 unit subcut BEDTIME 05/08/22 11/13/24 03/06/23 09:30 History mL) subcutaneous pen (Lantus 30 units Solostar U-100 Insulin) insulin lispro 100 unit/mL 15 unit subcut DIRECTED 05/08/22 11/13/24 Unknown History subcutaneous pen (Humalog KwikPen (U-100) Insulin) omega 7-mpk-lpj-fish oil 1,000 mg 1 cap PO DAILY 09/11/23 11/13/24 Unknown History (120 mg-180 mg) capsule (Fish Oil) amlodipine 10 mg tablet 10 mg PO DAILY 03/11/24 11/13/24 11/18/24 History lisinopril 40 mg tablet 40 mg PO DAILY 03/11/24 11/13/24 Unknown History pantoprazole 40 mg tablet,delayed 40 mg PO DAILY 03/11/24 11/13/24 11/18/24 History release semaglutide 0.25 mg or 0.5 mg (2 0.25 mg subcut QWEEK 03/11/24 11/13/24 10/31/24 History mg/3 mL) subcutaneous pen injector (Ozempic) Exam Height,Weight and Vital Signs: Height 5 ft 8 in Weight 103.873 kg Last Vital Signs Pulse 67 10/22/24 12:20 Resp 18 10/22/24 12:20 BP 140/66 H 10/22/24 12:20 Pulse Ox 97 10/22/24 12:20 O2 Del Method Room Air 10/22/24 12:20 Pertinent Lab Results Pertinent Lab Results: Lab Results 10/22/24 10/22/24 11/13/24 Range/Units 12:50 13:20 16:16 WBC 8.4 (4.8-10.8) X10*3/uL RBC 4.38 L (4.60-5.80) X10*6/uL Hgb 14.8 (14.0-18.0) g/dl Hct 43.2 (42.0-52.0) % MCV 98.6 H (80.0-98.0) fL MCH 33.8 H (27.0-33.0) pg MCHC 34.3 (31.0-36.0) g/dl RDW 12.5 (11.0-16.0) % Plt Count 162 (160-400) X10*3/uL MPV 9.6 (9.4-12.4) fL Absolute Nucleated RBC 0.000 (0.0-0.012) X10*3/uL Nucleated RBC % (auto) 0.0 (0.0-0.2) /100WBC Sodium 142 (135-145) mmol/L Potassium 4.2 (3.3-5.1) mmol/L Chloride 106 (96-108) mmol/L Carbon Dioxide 27 (22-29) mmol/L Anion Gap 13 (12-20) BUN 19 H (9-16) mg/dL Creatinine 1.12 (0.5-1.4) mg/dL Estim Creat Clear Calc 71.6 Estimated GFR > 60 Random Glucose 103 (60-115) mg/dL Calcium 9.2 (8.4-10.2) mg/dL Nasal Screen MRSA (PCR) NEGATIVE (Negative) Nasal S. aureus Screen NEGATIVE (Negative) Nasal MRSA/S.aureus Interp SEE NOTE Blood Type A Positive Antibody Screen NEGATIVE Narrative Narrative: ECG 12-Lead 08:14:11 [id number] Ventricular Rate: 67 BPM Atrial Rate: 67 BPM P-R Interval: 190 ms QRS Duration: 94 ms Q-T Interval: 404 ms QTC Calculation(Bazett): 426 ms P [place]: 78 degrees R [place]: 40 degrees T [place]: 30 degrees Normal sinus rhythm Normal ECG When compared with ECG of 30-Jul-2023 11:51, No significant change was found Confirmed by ANA OLIVRE MD ([id number]) on 10/15/2024 4:01:45 PM ECHO 2020 Summary 1) The LV systolic function is normal. The left ventricular ejection fraction is 60-65%. Can not exclude hypokinesis of the distal inferolateral wall. 2) The left ventricular wall thickness is upper normal. 3) The right ventricle is poorly visualized, but is probably mildly dilated with borderline reduced systolic function. 4) The aortic valve appears mildly calcified. There is no significant aortic stenosis or regurgitation. Airway Mallampati Class: III (small mouth) Neck ROM: Full Loose/Missing/Broken Teeth: Yes (upper permanent bridge, lower missing) and No Heart: RRR Lungs: CTAB Assessment and Plan Assessment Anesthesia Assessment: Anesthesia Plan Discussed and PAT Visit Final Anesthetic Review Family History of Problems with Anesthesia: No History of Problems with Anesthesia: No Documented by User: Jonas Sánchez MD 11/18/24 07:03 [facility] Past Medical History Medical History COVID-19 Skin cancer Arthritis Back pain Kidney stones Cardiomyopathy Diverticulosis Severe obesity Seasonal allergies Plaque psoriasis Pulmonary nodules Hypercholesterolemia GERD (gastroesophageal reflux disease) Depression CAD (coronary artery disease) CKD (chronic kidney disease), stage III KALE (obstructive sleep apnea) Heart attack Internal derangement of left knee Hyperlipidemia Hypertension Diabetes Functional capacity: independent ambulation Surgical History Surgical History Hx of left knee surgery Hx of local excision of skin lesion History of esophagogastroduodenoscopy (EGD) H/O colonoscopy H/O heart artery stent Hx of cholecystectomy Social History Social History Are you a primary respiratory care program director to a significant other at home: No Do you presently have visiting nurse or other home services: No Patient Tobacco Use Status: Former Tobacco user Tobacco use type: Cigarette Use of substances other than those prescribed or required for medical reasons: No Have you been hit, kicked, punched, or otherwise hurt by someone within the past year? If so, by whom?: No Are you DNR?: No Advance Directives: No Advance Directives Information Provided: Yes Advance Directives on File: No Poor oral hygiene: Yes Current occupational status: employed Current occupation: [employer] Allergies Allergy/AdvReac Type Severity Reaction Status Date / Time No Known Allergies Allergy Verified 11/13/24 15:29 Home Medications ?Medication ?Instructions ?Recorded ?Confirmed ?Last Taken ?Type adalimumab 40 mg/0.4 mL 40 mg subcut Q2W 10/28/21 11/13/24 Unknown History subcutaneous pen kit (Humira(CF) Pen) aspirin 81 mg tablet,delayed 81 mg PO DAILY 10/28/21 11/13/24 03/06/23 History release atorvastatin 40 mg tablet 40 mg PO DAILY 10/28/21 11/13/24 Unknown History carvedilol 25 mg tablet 25 mg PO BID 10/28/21 11/13/24 11/18/24 History empagliflozin 25 mg tablet 25 mg PO DAILY 10/28/21 11/13/24 11/14/24 History (Jardiance) insulin glargine 100 unit/mL (3 40 unit subcut BEDTIME 05/08/22 11/13/24 03/06/23 09:30 History mL) subcutaneous pen (Lantus 30 units Solostar U-100 Insulin) insulin lispro 100 unit/mL 15 unit subcut DIRECTED 05/08/22 11/13/24 Unknown History subcutaneous pen (Humalog KwikPen (U-100) Insulin) omega 2-fwd-prb-fish oil 1,000 mg 1 cap PO DAILY 09/11/23 11/13/24 Unknown History (120 mg-180 mg) capsule (Fish Oil) amlodipine 10 mg tablet 10 mg PO DAILY 03/11/24 11/13/24 11/18/24 History lisinopril 40 mg tablet 40 mg PO DAILY 03/11/24 11/13/24 Unknown History pantoprazole 40 mg tablet,delayed 40 mg PO DAILY 03/11/24 11/13/24 11/18/24 History release semaglutide 0.25 mg or 0.5 mg (2 0.25 mg subcut QWEEK 03/11/24 11/13/24 10/31/24 History mg/3 mL) subcutaneous pen injector (Ozempic) Exam Exam Date and Time: 11/18/2024 Airway TM Dist: >3cm Assessment and Plan Final Anesthetic Review NPO: Yes ASA Class: III Final Preanesthetic Review: No Changes in Pt Med Stat, Meds/Allgs Chart Reviewed, Consent Obtained/Reviewed and Anes Risks/Benef Reviewed Patient Risk: Intermediate Procedure Risk: Low Assessment/Block/Sedation in SS: Assess/Block/Sedation-SS Anesthetic Plan Anesthetic Plan: Spinal and Regional Block Disposition: Standard PACU
[2024-10-22 14:23] LABS: Hematocrit 43.2 % (42.0-52.0); Hemoglobin 14.8 g/dl (14.0-18.0); Mean Corpuscular HGB Conc 34.3 g/dl (31.0-36.0); Mean Corpuscular Hemoglobin 33.8 pg (27.0-33.0); Mean Corpuscular Volume 98.6 fL (80.0-98.0); Mean Platelet Volume 9.6 fL (9.4-12.4); Platelet Count 162 X10*3/uL (160-400); Red Blood Count 4.38 X10*6/uL (4.60-5.80); Red Cell Distribution Width 12.5 % (11.0-16.0); White Blood Count 8.4 X10*3/uL (4.8-10.8)
[2024-10-22 14:35] LABS: MRSA Nasal PCR NEGATIVE (Negative); SA Nasal PCR NEGATIVE (Negative)
[2024-10-22 14:39] LABS: Anion Gap 13 (12-20); Blood Urea Nitrogen 19 mg/dL (9-16); Calcium 9.2 mg/dL (8.4-10.2); Carbon Dioxide 27 mmol/L (22-29); Chloride 106 mmol/L (96-108); Creatinine Clr Calc Pharmacy 71.6; Estimated Glomerular Filt Rate > 60; Glucose Random 103 mg/dL (60-115); Potassium 4.2 mmol/L (3.3-5.1); Sodium 142 mmol/L (135-145)
[2024-11-18] VITALS (15 sets, daily range): BP systolic 94–180; BP diastolic 31–79; PULSE 53–90; RESP 15–20; TEMP 36.1–37.6; O2SAT 92–98; BMI 34.4; BMI 37.0
--- NOTE | ~2024-11-18 | XR_ITS ---
EXAMINATION: XR KNEE, LEFT CLINICAL INFORMATION: LT UKA COMPARISON: 11/13/2024 TECHNIQUE: Two views of the left knee. FINDINGS: There is been a medial compartment hemiarthroplasty. Tibial, and femoral components appear intact, well seated, in anatomic alignment. No complication evident. No fracture present. There is mild subcutaneous and intra-articular soft tissue gas. There are ventral skin elicia present. The lateral joint spaces preserved with only minimal degenerative change. Mild arthritis in the patellofemoral joint. There is a moderate joint effusion of the knee. XR/XR knee LT 2V IMPRESSION: Post medial compartment hemiarthroplasty without complication. Electronically signed by: Jeancarlos Mcdowell MD 11/18/2024 10:38 AM EDT
[2024-11-18 06:46] LABS: Hematocrit 41.5 % (42.0-52.0); Hemoglobin 14.1 g/dl (14.0-18.0)
[2024-11-18] MEDS: Lactated Ringers 1,000 ML 100 ML IVCONT ×3 (07:10→21:37)
--- NOTE | 2024-11-18 07:21 | MHC.SHP ---
Pre-Procedural Eval Section A - 24 Hr Update-Section A only Date of Service: 11/18/24 The patient is an INPATIENT: No Changes since office visit: No Cold of Flu in the past 2 weeks, No New Medical Problems, No Changes in Medication and No Patient answered all questions The patient has been examined within 24 hours of the surgical procedure. The History & Physical has been completed within 30 days and I have reviewed it.: Yes Section B - Complete if H&P > 30 days Chief Complaint: Unilateral primary osteoarthritis, left knee Allergies: Allergies Allergy/AdvReac Type Severity Reaction Status Date / Time No Known Allergies Allergy Verified 11/13/24 15:29 Plan I have reviewed the history and physical and performed a pertinent physical examination on my patient. No changes have occurred unless specified. Time Spent With Patient Time: Total time managing care of this patient today ____ minutes.
[2024-11-18] MEDS: ceFAZolin Sodium/Dextrose,Iso 2 GM/50 ML PIGGYBACK IV ×2 (08:15→16:05)
--- NOTE | 2024-11-18 10:04 | PM.OP ---
Brief Operative Note Date of Service: 11/18/24 Pre-op diagnosis: Left knee OA Post-op diagnosis: same Procedure: Left UKA Implants: Persona left medial compartment 4E8 cemented Surgeon: Les Hu MD Anesthesia: GETA Was an Practical Nursing Faculty used for this Procedure?: Yes Practical Nursing Faculty: Tez Kessler Estimated blood loss (mL): 50 Tourniquet time (min): 75 IV fluids (mL): 1,000 Pathology: other Condition: stable Disposition: PACU
--- NOTE | 2024-11-18 10:07 | P.OP_ITS ---
Operative Note Operative Note Date of Service: 11/18/24 Narrative: Date of Service: 11/18/24 Pre-op diagnosis: Left knee OA Post-op diagnosis: same Procedure: Left UKA Implants: Persona left medial compartment 4E8 cemented Surgeon: Les Hu MD Anesthesia: GETA Was an Pilot Plant Operator Helper used for this Procedure?: Yes Pilot Plant Operator Helper: Tez Kessler Estimated blood loss (mL): 50 Tourniquet time (min): 75 IV fluids (mL): 1,000 Pathology: other Condition: stable Disposition: PACU Procedure in detail: The patient was brought to the operating room and prepped and draped in standard sterile fashion. A time-out was called to identify proper site proper procedure proper surgeon and IV antibiotics were administered. 1 g of IV tranexamic acid was administered. I began by making a medial incision to the retinaculum and performed a limited medial parapatellar arthrotomy. I extended the arthrotomy up to the quad tendon. The patella was protected with a amira in the notch and the knee was flexed up. There were G1 changes of the PFJ and lateral compartment was normal. There was eburnation of the medial compartment. I performed a medial peel and placed a Z retractor in the notch to protect the patella and one medially to protect the MCL. I placed my extension guide and, in alignement with the tibial tubercle and tibial shaft, I made a 4mm cut. Care was taken to protect the posterior soft tissues and I removed the bone and excess debris. I trialed with an extension block. I released the medial capsule with a bridges and removed tibial osteophytes and removed the meniscus. . I was satisfied with the amount of resection using the trial . I then made my saggital cut with a saggital saw a saw just medial to the tibial insertion of the ACL. All bone was removed and I placed my 9mm extension block to make my distal femoral cut in terminal extension. Once my cut was made and all bony debris was removed and assessed my flexion and extension gaps and was satisfied with the balance and tightness. I therefore placed my sizing guide and sized a 4 femur. I placed my chamfer cutting guide and made my chamfer cuts as well as my lug holes. I then turned my attention to the tibia and sized a E tibia. A guide was placed and my lug holes drilled. I then trialed a 4E9 and was satisfied with the balance and stability. One bag of Palacos bone cement was mixed on the back table with 3rd gen cementation technique. I then cemented in the femur and tibia in standard fashion while applying axial compression using a 9mm tibial insert. Once the cement was hard on the back table all excess cement was removed and I trialed different inserts until I selected a #8 insert. The 2m lollipop was inserted and removed easily but not too loosely. The final insert was placed. I irrigated copiously and the knee was then closed with a running Quill suture, a 3 0 Vicryl and elicia on the skin. Patient was then placed in sterile dressing and brought to recovery room in stable condition there were no known complications.
--- NOTE | 2024-11-18 12:31 | PC.NURSE ---
called pharmacy ,unable to take dilaudid from pyxis not on patient profile
[2024-11-18] MEDS: HYDROmorphone HCl 0.5 MG/0.5 ML SYRINGE 0.25 MG IVPUSH (12:48)
[2024-11-18] MEDS: Acetaminophen 325 MG TABLET 650 MG PO (12:49)
[2024-11-18] MEDS: oxyCODONE HCl Immed Release 5 MG TABLET PO (13:13)
--- NOTE | 2024-11-18 13:13 | PHA.MEDREC ---
Addendum entered by Eneida Rodriguez RPh 11/18/24 13:38: Reviewed by [facility]. Original Note: Pharmacy Consult ? Medication Reconciliation Pharmacy reviewed med rec done by nursing. Spoke with pt and confirmed the med rec done was correct. Pt states he stopped taking the Humira and Ozempic about 2-3 weeks ago due to the surgery. Patient confirmed he stopped Jardiance in the last 3 days due to the surgery. Pt confirmed his Humalog injecting 15 units if necessary, three times a day before meals and his Lantus he confirmed he takes 50 units at bedtime but only took 25 units last night per the Dr for the surgery.
--- NOTE | 2024-11-18 15:21 | P.DS_ITS ---
DS: Providers Provider Date of Service: 11/19/24 <Tez Kessler PA-C - Last Filed: 11/18/24 15:22> Date of discharge: 11/19/24 <Tez Kesslre PA-C - Last Filed: 11/18/24 15:22> Primary care physician: Unknown Physician <Tez Kessler PA-C - Last Filed: 11/18/24 15:22> Consults: 11/18/24 12:24 Consult to Hospitalist Routine Comment: Consulting Provider: [facility] Hospitalists Reason For Exam: DIABETIC <ADAN Hooker Last Filed: 11/18/24 15:22> DS: Summary Hospital Course Hospital Course: The patient underwent a successful Left knee unicompartment arthroplasty on 11/18/24 , was transferred to PACU and then to the floor to recover. During their stay, their vitals were stable, afebrile at 97.5. Labs were unremarkable, H/H 14.2/40.9. POD 1 he was started on Lovenox for DVT ppx, they also received Physical Therapy services twice a day. Physical therapy should include gait training, ROM to tolerance and quad strength. He is WBAT. Prior to discharge, his dressing was changed, incision clean dry and intact, new Aquacel dressing applied. The Aquacel dressing should remain intact and dry at all times. Any concerns with the dressing, please contact orthopedic office. No showering. The plan is to be discharged home wtih VNA <Tez Kessler PA-C - Last Filed: 11/18/24 15:22> Time Attestation Discharge Coordination Time (in mins): 30 <Doretha Richard PA-C - Last Filed: 11/19/24 07:49> Quality: Safe Use of Opioids Does Pt have an Active Cancer Diagnosis on the Problem List?: No <Doretha Richard PA-C - Last Filed: 11/19/24 07:49> Quality: Stroke Does the patient have a stroke diagnosis?: No <Doretha Richard PA-C - Last Filed: 11/19/24 07:49> Physical Exam Vital Signs: Vital Signs: Last Vital Signs Temp 97 F 11/18/24 12:24 Pulse 56 11/18/24 14:07 Resp 16 11/18/24 12:24 BP 137/64 11/18/24 14:07 Pulse Ox 95 11/18/24 14:07 O2 Del Method Room Air 11/18/24 12:24 O2 Flow Rate 2 11/18/24 10:45 BMI result Body Mass Index 37.0 <Tez Kessler PA-C - Last Filed: 11/18/24 15:22> Extrem: Other: left knee dressing is c/d/i. Able to dorsi/plantar flex. Calf is supple and nontender. Sensation intact. Pedal pulse intact. <Doretha Richard PA-C - Last Filed: 11/19/24 07:49> DS: Data Data Completed and Pending Pending studies at discharge: Pending at discharge 11/18/24 09:41 Surgical [PTH] Routine <Tez Kessler PA-C - Last Filed: 11/18/24 15:22> Labs on day of discharge: Laboratory Results - last 24 hr 11/18/24 06:29 Hgb 14.1 Hct 41.5 L <Tez Kessler PA-C - Last Filed: 11/18/24 15:22> Discharge Plan Discharge Patient Disposition: Home Health Service <Tez Kessler PA-C - Last Filed: 11/18/24 15:22> Referrals: Doretha Richard PA-C [Physician Audit Lead] - 12/04/24 3:15 pm (12/04/24 15:15 [facility] Orthopedic Surgeons Doretha Richard PA-C) <Tez Kessler PA-C - Last Filed: 11/18/24 15:22> Discharge Medications: New enoxaparin 40 mg/0.4 mL Syringe 40 mg subcut Q24H 42 Days Qty: 16.8 0RF acetaminophen 325 mg Tablet 650 mg PO Q6H PRN (Reason: Pain, Mild 1-3,Fever,Headache) 30 Days Qty: 240 0RF oxycodone 10 mg tablet 10 mg PO Q4H PRN (Reason: Pain, Moderate(Pain Scale 4-6)) 10 Days Qty: 7 0RF Rx Instructions: Partial Fill upon patient request. sennosides [Senna Lax] 8.6 mg Tablet 17.2 mg PO BEDTIME 7 Days Qty: 14 0RF Continued (DME) walker Misc See Rx Instructions .MEDSUPPLY Qty: 1 0RF Rx Instructions: Folding Front wheeled walker DURATION 99 DAYS adalimumab-ryvk 40 mg/0.4 mL auto-injector, kit 40 mg subcut Q2W insulin glargine [Lantus Solostar U-100 Insulin] 100 unit/mL (3 mL) insulin pen 50 unit subcut BEDTIME insulin lispro [Humalog KwikPen Insulin] 100 unit/mL insulin pen 15 unit subcut TIDAC atorvastatin 40 mg tablet 40 mg PO DAILY aspirin 81 mg tablet,delayed release (DR/EC) 81 mg PO DAILY carvedilol 25 mg tablet 25 mg PO BID Jardiance 25 mg tablet 25 mg PO DAILY pantoprazole 40 mg tablet,delayed release (DR/EC) 40 mg PO DAILY@0630 omega 6-ron-bxe-fish oil [Fish Oil] 1,000 mg (120 mg-180 mg) capsule 1 cap PO DAILY Ozempic 0.25 mg or 0.5 mg (2 mg/3 mL) pen injector 0.25 mg subcut FR Rx Instructions: patient takes every Sunday amlodipine 10 mg tablet 10 mg PO DAILY lisinopril 40 mg tablet 40 mg PO DAILY <Tez Kessler PA-C - Last Filed: 11/18/24 15:22> Discharge Orders: Discharge Order (Routine); Ordered 11/19/24 Ordered By: Doretha Richard <Tez Kessler PA-C - Last Filed: 11/18/24 15:22> Diet: Advance to usual diet <ADAN Hooker Last Filed: 11/18/24 15:22> Advance to usual diet <Doretha Richard PA-C - Last Filed: 11/19/24 07:49> Activity on Discharge: Use cane or walker <ADAN Hooker Last Filed: 11/18/24 15:22> Use cane or walker <Doretha Richard PA-C - Last Filed: 11/19/24 07:49> Activity Restrictions/Additional Instructions: Physical Therapy for Total knee arthroplasty: WBAT, gait training, ROM 0-12, quad strength * Limit stair climbing * No showering, no tub bath-keep dressing clean, dry and intact * No driving x6 weeks * Continue Aspirin twice a day x 6 weeks * Follow up with [facility] Orthopedics in 2 weeks: <Tez Kessler PA-C - Last Filed: 11/18/24 15:22> Print Language: Kyrgyz <Tez Kessler PA-C - Last Filed: 11/18/24 15:22>
--- NOTE | 2024-11-18 15:22 | P.F2F_ITS ---
Service Date Service Date: 11/19/24 Encounter Date of encounter: 11/19/24 Reasons for Services Signs and symptoms assessed: Weakness, poor balance, poor gait mechanics Reason for physical therapy: home safety and mobility, therapeutic exercises, restore joint function, gait/transfer training, ADL training and energy conservation Reason for occupational therapy: home safety and mobility, therapeutic exercises, restore joint function, gait/transfer training, ADL training and energy conservation Homebound: Leaving the home is medically contraindicated at this time without the asist of a device and/or another person due th the listed conditions above and below. Reason homebound: unsteady gait / fall risk, pain with ambulation, poor balance / fall risk, shortness of breath at rest and unable to drive Homebound supporting statement: Pt. is considered home bound due to recent surgery. Unable to drive, poor balance, poor gait mechanics. Certification: Based on the above findings, I certify that this patient is confined to the home and needs intermittent nursing home care, physical therapy and/or speech therapy, or continues to need occupational therapy. The patient is under my c are, and I have initiated the establishment of the plan of care. The patient will be followed by a physician who will periodically review the plan of care. Time Spent With Patient Time: Total time managing care of this patient today ____ minutes.
[2024-11-18] MEDS: HYDROmorphone HCl 0.5 MG/0.5 ML SYRINGE IVPUSH ×3 (15:44→23:45)
[2024-11-18 16:13] LABS: Glucose, Whole Blood 157 mg/dL (60-115)
--- NOTE | 2024-11-18 16:30 | P.CONHOSP_ITS ---
History of Present Illness Data of Consult Service Date: 11/18/24 Primary Care Provider: Unknown Physician HPI 69-year-old man admitted or by Orthopedic surgery and is status post left knee osteoarthritis with left unicompartmental knee arthroplasty. Surgery was unremarkable. Patient has been able to drink without any nausea or vomiting. Vital signs are stable, recent hemoglobin and hematocrit within normal limits. Patient has no acute medical complaints at this time. Review of Systems 2 Review of Systems: Denies any recent fever chills or decrease in appetite respiratory denies any shortness of breath coverage production cardiovascular is adjustment of any PND or edema gastrointestinal denies any dysphagia abdominal pain nausea vomiting or diarrhea genitourinary denies any dysuria frequency or hematuria musculoskeletal left knee pain neuropsych denies any weakness or seizures all other systems reviewed are negative [facility] Medical History COVID-19 Skin cancer Arthritis Back pain Kidney stones Cardiomyopathy Diverticulosis Severe obesity Seasonal allergies Plaque psoriasis Pulmonary nodules Hypercholesterolemia GERD (gastroesophageal reflux disease) Depression CAD (coronary artery disease) CKD (chronic kidney disease), stage III KALE (obstructive sleep apnea) Heart attack Internal derangement of left knee Hyperlipidemia Hypertension Diabetes Functional capacity: independent ambulation Surgical History Hx of left knee surgery Hx of local excision of skin lesion History of esophagogastroduodenoscopy (EGD) H/O colonoscopy H/O heart artery stent Hx of cholecystectomy Social History Household Members: Spouse Housing: House Are you a primary child care teacher to a significant other at home: No Do you presently have visiting nurse or other home services: No Patient Tobacco Use Status: Former Tobacco user Tobacco use type: Cigarette Smoked in Last 30 Days: No Patient Interested in Nicotine Replacement: No Patient Given Instructions on How to Stop Smoking: No Second Hand Smoke Exposure: No Use of substances other than those prescribed or required for medical reasons: No Have you been hit, kicked, punched, or otherwise hurt by someone within the past year? If so, by whom?: No Do you feel safe in your current relationship?: Yes Is there a partner from a previous relationship who is making you feel unsafe now?: No Are you made to feel afraid or neglected: No Are you DNR?: No Advance Directives: No Advance Directives Information Provided: Yes Advance Directives on File: No Do you have a plan to hurt others: No Plan Recently lost weight without trying: No Eating poorly because of decreased appetite: No Nutrition Risks: No Nutritional Risk Poor oral hygiene: No Current occupational status: employed Current occupation: [employer] Allergies Allergy/AdvReac Type Severity Reaction Status Date / Time No Known Allergies Allergy Verified 11/13/24 15:29 Active Medications: Current Medications Acetaminophen (Acetaminophen 325 Mg Tablet) 650 mg PO Q6H PRN PRN Reason: Pain, Mild 1-3,fever,headache Last Admin: 11/18/24 12:49 Dose: 650 mg Carvedilol (Carvedilol 25 Mg Tablet) 25 mg PO BID JH; Protocol Dextrose (Dextrose 50 % 25 Gm/50 Ml Syringe) 25 gm IVPUSH Q15M PRN; Protocol PRN Reason: per Hypoglycemia Standing Ord. Enoxaparin Sodium (Enoxaparin Sodium 40 Mg/0.4 Ml Syringe) 40 mg SUBCUT Q24H JH Glucose (Glucose Gel 15 Gm Gel..Gram.) 15 gm PO Q15M PRN; Protocol PRN Reason: per Hypoglycemia Standing Ord. Hydromorphone HCl (Hydromorphone Hcl 0.5 Mg/0.5 Ml Syringe) 0.5 mg IVPUSH Q3H PRN; Protocol PRN Reason: Pain, Severe (Pain Scale 7-10) Last Admin: 11/18/24 15:44 Dose: 0.5 mg Lactated Ringer's (Lr) 1,000 mls @ 100 mls/hr IVCONT .Q10H [facility] Stop: 11/19/24 08:00 Last Admin: 11/18/24 13:03 Dose: 100 mls/hr Insulin Human Lispro (Insulin Lispro 100 Unit/Ml 3 Ml Vial) 0 unit SUBCUT QIDACHS JH; Protocol Last Admin: 11/18/24 16:29 Dose: Not Given Omeprazole (Omeprazole 20 Mg Capsule.Dr) 20 mg PO DAILY@0630 JH Ondansetron HCl (Ondansetron Hcl 4 Mg/2 Ml Vial) 4 mg IVPUSH Q8H PRN PRN Reason: Nausea and Vomiting Oxycodone HCl (Oxycodone Hcl Er 10 Mg Tab.Er.12h) 10 mg PO BID JH Oxycodone HCl (Oxycodone Hcl Immed Release 5 Mg Tablet) 10 mg PO Q4H PRN PRN Reason: Pain, Moderate(Pain Scale 4-6) Senna (Sennosides 8.6 Mg Tablet) 17.2 mg PO BEDTIME JH Sodium Chloride (0.9 % Sodium Chloride Flush 3 Ml Syringe) 3 ml IVFLUSH QSHIFT [facility] Home Medications ?Medication ?Instructions ?Recorded ?Confirmed ?Last Taken ?Type aspirin 81 mg tablet,delayed 81 mg PO DAILY 10/28/21 11/13/24 11/17/24 History release atorvastatin 40 mg tablet 40 mg PO DAILY 10/28/21 11/13/24 11/17/24 History carvedilol 25 mg tablet 25 mg PO BID 10/28/21 11/13/24 11/17/24 History empagliflozin 25 mg tablet 25 mg PO DAILY 10/28/21 11/13/24 11/16/24 History (Jardiance) insulin glargine 100 unit/mL (3 50 unit subcut BEDTIME 05/08/22 11/18/24 11/17/24 History mL) subcutaneous pen (Lantus 25 un Solostar U-100 Insulin) insulin lispro 100 unit/mL 15 unit subcut TIDAC 05/08/22 11/18/24 Unknown History subcutaneous pen (Humalog KwikPen (U-100) Insulin) omega 9-nwk-jxs-fish oil 1,000 mg 1 cap PO DAILY 09/11/23 11/13/24 Unknown History (120 mg-180 mg) capsule (Fish Oil) amlodipine 10 mg tablet 10 mg PO DAILY 03/11/24 11/13/24 11/17/24 History lisinopril 40 mg tablet 40 mg PO DAILY 03/11/24 11/13/24 11/17/24 History pantoprazole 40 mg tablet,delayed 40 mg PO DAILY@0630 03/11/24 11/18/24 11/17/24 History release semaglutide 0.25 mg or 0.5 mg (2 0.25 mg subcut FR 03/11/24 11/18/24 2 Weeks Ago History mg/3 mL) subcutaneous pen injector ~11/04/24 (Ozempic) adalimumab-ryvk 40 mg/0.4 mL 40 mg subcut Q2W 11/18/24 11/18/24 2 Weeks Ago History subcutaneous auto-injector kit ~11/04/24 Physical Exam 2 Vital Signs and Narrative: Vital Signs: Last Vital Signs Temp 98.0 F 11/18/24 15:44 Pulse 66 11/18/24 15:44 Resp 18 11/18/24 15:44 BP 152/66 H 11/18/24 15:44 Pulse Ox 95 11/18/24 15:44 O2 Del Method Room Air 11/18/24 15:44 O2 Flow Rate 2 11/18/24 10:45 BMI result Body Mass Index 37.0 Appearing in no acute distress head is normocephalic atraumatic eyes pupils are PERRLA sclera is anicteric mouth throat mucous membranes are intact and moist neck is supple no lymphadenopathy, no JVD noted lung sounds are clear to auscultation heart regular rate rhythm, clear S1, S2 positive bowel sounds, abdomen is soft, nontender neuro patient is alert x3, no focal deficits Left knee surgical dressing is intact, surgical incision not visualized Results Labs 11/18/24 06:29 10/22/24 13:20 Labs: Laboratory Results - last 24 hr 11/18/24 16:03 POC Glucose 157 H Imaging Radiologist's Impressions: Impressions Knee X-Ray 11/18/24 09:22 IMPRESSION: Post medial compartment hemiarthroplasty without complication. Electronically signed by: Jeancarlos Mcdowell MD 11/18/2024 10:38 AM EDT RP Assessment and Plan (1) Hypertension: Qualifiers: Hypertension type: primary hypertension Qualified Code(s): I10 - Essential (primary) hypertension Status: Acute Plan 69-year-old man admitted by Orthopedic surgery and is status post left UKA Left unicompartmental knee arthroplasty Has been as per surgical team Pain management Diabetes mellitus type 2 Sliding scale Hypertension Continue lisinopril, carvedilol History of coronary artery disease On aspirin, statin and beta-aicha Hold aspirin and statin for now GERD Continue PPI DVT prophylaxis with Lovenox Full code Medical consultation complete. Will sign off
[2024-11-18] MEDS: oxyCODONE HCl Immed Release 5 MG TABLET 10 MG PO (18:50)
[2024-11-18] MEDS: oxyCODONE HCl ER 10 MG TAB.ER.12H PO (20:09)
[2024-11-18] MEDS: Sennosides 8.6 MG TABLET 17.2 MG PO (20:10)
[2024-11-18] MEDS: carvediloL 25 MG TABLET PO (20:10)
[2024-11-18 21:21] LABS: Glucose, Whole Blood 170 mg/dL (60-115)
[2024-11-18] MEDS: Insulin Lispro 100 UNIT/ML 3 ML VIAL SUBCUT (21:30)
[2024-11-18] MEDS: Insulin Glargine,Hum.rec.anlog 100 UNIT/ML 10 ML VIAL 50 UNIT SUBCUT (21:32)
[2024-11-18] MEDS: 0.9 % Sodium Chloride Flush 3 ML SYRINGE IVFLUSH (23:50)
[2024-11-19 00:15] VITALS: BP 162/72; PULSE 80
--- NOTE | 2024-11-19 02:31 | PC.NURSE ---
Addendum entered by Ciera Lizama RN 11/19/24 02:48: adding to note, patient also refused further IVF, stating this is causing his bladder to fill fast and he is anxious he cannot void on his own. IVF disconnected at approx 0015, tolerating PO fluids. Original Note: Moreno was unable to void at 2330 for DTV#2, Patient void approx 25mL 0000 after sitting on edge of bed. bladder scan for 750mL. Patient was initially refusing bladder scan and stating that he wanted to leave to another staff member. BP at that time was 180/79. He is concerned that his BP meds are not ordered. He had 8/10 pain at that time. Allowed patient to vent his concerns and frustration. After educating patient agreed and 750mL yellow urine emptied via straight cath. Dilaudid was given for his knee pain with good effect. He is refusing bed alarm but agrees to ring if needed for ambulation. He is currently sleeping. DTV #3 at 0692
[2024-11-19 03:38] VITALS: BP 160/74; PULSE 70; RESP 18; TEMP 37; O2SAT 92
[2024-11-19] MEDS: Omeprazole 20 MG CAPSULE.DR PO (05:55)
[2024-11-19 05:59] LABS: MANUAL DIFF FLAG NO
[2024-11-19 06:05] LABS: Basophils Percent Auto 0.2 % (0-2); Eosinophils Percent Auto 0.4 % (0-4); Hematocrit 40.9 % (42.0-52.0); Hemoglobin 14.2 g/dl (14.0-18.0); Imm Gran Abs Auto 0.05 X10*3/uL (0.00-0.03); Imm Gran Pct Auto 0.5 % (0.0-0.4); Lymphocytes Absolute Auto 2.1 X10*3/uL (1.2-4.9); Lymphocytes Percent Auto 18.8 % (20-40); Mean Corpuscular HGB Conc 34.7 g/dl (31.0-36.0); Mean Corpuscular Hemoglobin 33.9 pg (27.0-33.0); Mean Corpuscular Volume 97.6 fL (80.0-98.0); Mean Platelet Volume 9.3 fL (9.4-12.4); Monocytes Absolute Auto 0.8 X10*3/uL (0.1-1.2); Monocytes Percent Auto 7.7 % (2-11); Neutrophils Absolute Auto 7.9 x10*3/uL (2.0-8.3); Neutrophils Percent Auto 72.4 % (45-73); Platelet Count 134 X10*3/uL (160-400); Red Blood Count 4.19 X10*6/uL (4.60-5.80); Red Cell Distribution Width 12.4 % (11.0-16.0)
[2024-11-19 06:25] LABS: Anion Gap 11 (12-20); Blood Urea Nitrogen 16 mg/dL (9-16); Calcium 8.9 mg/dL (8.4-10.2); Carbon Dioxide 25 mmol/L (22-29); Chloride 107 mmol/L (96-108); Creatinine Clr Calc Pharmacy 82.5; Estimated Glomerular Filt Rate > 60; Glucose Fasting 129 mg/dL (60-99); Sodium 139 mmol/L (135-145)
[2024-11-19] MEDS: Acetaminophen 325 MG TABLET 650 MG PO (07:13)
[2024-11-19] MEDS: oxyCODONE HCl ER 10 MG TAB.ER.12H PO (07:13)
[2024-11-19] MEDS: oxyCODONE HCl Immed Release 5 MG TABLET 10 MG PO ×2 (07:14→11:46)
[2024-11-19 07:36] VITALS: BP 155/68; PULSE 67; RESP 16; TEMP 36.4; O2SAT 91
[2024-11-19 07:47] LABS: Glucose, Whole Blood 124 mg/dL (60-115)
[2024-11-19 08:43] VITALS: BP 155/68; PULSE 67; O2SAT 91
[2024-11-19] MEDS: carvediloL 25 MG TABLET PO (09:02)
[2024-11-19] MEDS: amLODIPine Besylate 10 MG TABLET PO (09:02)
[2024-11-19] MEDS: Enoxaparin Sodium 40 MG/0.4 ML SYRINGE SUBCUT (09:02)
[2024-11-19] MEDS: lisinopriL 40 MG TABLET PO (09:02)
[2024-11-19] MEDS: 0.9 % Sodium Chloride Flush 3 ML SYRINGE IVFLUSH (09:03)
--- NOTE | 2024-11-19 09:17 | MHC.CM.PN ---
CM MET WITH PT AT BEDSIDE. PT LIVES WITH SPOUSE AND IS FUNCTIONALLY INDEPENDENT, EMPLOYED F/T. + HCP (COPY AT [facility]) PCP DR. ATKINS DP: PT HAS BEEN MEDICALLY CLEARED FOR HOME WITH NEW [facility] FOR P.T. [facility] NOTIFIED OF TODAY'S DC. RN TO DO LOVENOX TEACH BEFORE DC. PT IS COMFORTABLE WITH PLAN. [facility] WILL TRANSPORT HOME.
--- NOTE | 2024-11-19 09:26 | HO.POSTANES ---
Post Anesthesia Evaluation Post Anesthesia Evaluation Date of Service: 11/19/24 Vital Signs: Vital Signs Temp Pulse Resp BP Pulse Ox O2 Del Method 11/19/24 08:43 67 155/68 H 91 L 11/19/24 07:36 97.5 F 67 16 155/68 H 91 L Room Air 11/19/24 03:38 98.6 F 70 18 160/74 H 92 Room Air 11/19/24 00:15 80 162/72 H 11/18/24 23:37 99.7 F 76 18 180/79 H 92 Room Air Anesthesia: Spinal Mental Status: Awake Pain Control: Satisfactory Nausea/Vomiting: None Hydration: Adequate Anesthesia-Related Issues: No Anes. Related Issues Comments: pt mentioned that several attemots were needed for his spinal
[2024-11-19 11:45] VITALS: BP 139/64; PULSE 65; RESP 16; O2SAT 94
[2024-11-19 11:46] LABS: Glucose, Whole Blood 248 mg/dL (60-115)
== END 2024-11-19 12:22 | disposition home health service (06) ==
LOC: HO.SSS 06:01 → HO.S3 12:22
PROVIDERS: Nurse Practitioner; Physician Assistant; PCP Internal Medicine; Visit Provider Orthopaedic Surgery
PROC: (CPT 27446; principal; 2024-11-18 07:30)
DX: M17.12 Unilateral primary osteoarthritis, left knee (principal); M25.562 Pain in left knee; R26.2 Difficulty in walking, not elsewhere classified; I12.9 Hypertensive chronic kidney disease with stage 1 through stage 4 chronic kidney disease, or unspecified chronic kidney disease; E11.22 Type 2 diabetes mellitus with diabetic chronic kidney disease; N18.30 Chronic kidney disease, stage 3 unspecified; I25.10 Atherosclerotic heart disease of native coronary artery without angina pectoris; Z95.5 Presence of coronary angioplasty implant and graft; I25.2 Old myocardial infarction; E78.5 Hyperlipidemia, unspecified; Z79.4 Long term (current) use of insulin; Z79.85 Long-term (current) use of injectable non-insulin antidiabetic drugs; Z79.82 Long term (current) use of aspirin; Z79.899 Other long term (current) drug therapy; Z99.89 Dependence on other enabling machines and devices; Z87.891 Personal history of nicotine dependence; Z98.890 Other specified postprocedural states
CPT/HCPCS: 27446; 36415; 73560; 80048; 82947; 85014; 85018; 85025; 85027; 86850; 86900; 86901; 87640; 87641; 88305; 88311; 97110; 97116; 97162; C1713; C1776; J0131; J0665; J0690; J1171; J1650; J2003; J2250; J2405; J2704; J3010; J7120

== ENCOUNTER → 2024-11-18 06:00 | Outpatient (BNV) | payer BC, SELFPAY | PROVIDERS: Visit Provider Orthopaedic Surgery | DX: Z47.1 Aftercare following joint replacement surgery (principal); Z96.652 Presence of left artificial knee joint; M17.12 Unilateral primary osteoarthritis, left knee | CPT/HCPCS: 27446; G0180 ==

== ENCOUNTER → 2024-11-18 06:00 | Outpatient (BNV) | payer BC, SELFPAY | PROVIDERS: Visit Provider Nurse Practitioner Acute Care | DX: I10 Essential (primary) hypertension (principal) | CPT/HCPCS: 99231 ==

== ENCOUNTER → 2024-11-18 10:10 | Outpatient (BNV) | payer BC, SELFPAY | PROVIDERS: Visit Provider Radiology Diagnostic Radiology | DX: Z96.652 Presence of left artificial knee joint (principal) | CPT/HCPCS: 73560 ==

== ENCOUNTER 2024-12-04 14:42 | Outpatient (REF) | payer BC, SELFPAY ==
[2024-12-04 15:36] LABS: Anion Gap 14 (12-20); Blood Urea Nitrogen 28 mg/dL (9-16); Calcium 9.4 mg/dL (8.4-10.2); Carbon Dioxide 24 mmol/L (22-29); Chloride 107 mmol/L (96-108); Estimated Glomerular Filt Rate 56; Potassium 4.5 mmol/L (3.3-5.1); Sodium 140 mmol/L (135-145)
[2024-12-04 15:37] LABS: Parathyroid Hormone Intact 88.5 pg/mL (8.7-77.1)
[2024-12-04 15:51] LABS: Vitamin D 25-OH Total 29.6 ng/mL (>30)
--- OUTSIDE RECORDS SUMMARY | 2024-12-04 17:52 | XMS_ITS | Clinical Summary ---
Author Organization [facility] Address [address] [place] [address] Care Team Providers Care Spice Blender Name Role Phone Lane Loyd MD Primary Care Provider [phone] Allergies No known active allergies Medications No [...] patient's age to complete this topic Insurance [facility] Care Teams Spice Blender Relationship Specialty Start Date End Date Lane Loyd MD [address] [place] [address] PCP - General Internal Medicine 08/13/23
== END 2024-12-04 14:43 | disposition home or self-care (01) ==
LOC: HO.LAB 14:42
PROVIDERS: Visit Provider Internal Medicine Nephrology
DX: I10 Essential (primary) hypertension (principal); N18.31 Chronic kidney disease, stage 3a; M17.12 Unilateral primary osteoarthritis, left knee; Z96.652 Presence of left artificial knee joint; Z48.02 Encounter for removal of sutures
CPT/HCPCS: 36415; 80051; 82306; 82310; 82565; 83970; 84520

== ENCOUNTER 2024-12-04 15:02 | Outpatient (AMB) | payer BC, SELFPAY ==
--- NOTE | 2024-12-04 15:29 | A.OFFVIS_ITS ---
Intake Visit Reasons: TMOOF: 2WKPO: L UKA w/NE 11/18/24 Intake Note: Moreno is a 69 year old male who presents today for a post op appointment s/p L UKA w/NE 11/18/24. Patient reports he is in extreme amount of pain. Reports he would not recommend a knee replacement due to pain. Patient reports his oxycodone script did not relieve any of his pain. He presents today with a cane for ambulation. Expresses he feels lousy. Allergies No Known Allergies Allergy (Verified 12/04/24 15:30) HPI HPI TMOOF: 2WKPO: L UKA w/NE 11/18/24: Details: Mr. Holguin is a 69-year-old male who presents to the office today status post left unicompartment (medial) knee arthroplasty performed on 11/18/[address] Hu. Patient states that he is experiencing a great deal of pain after surgery. He reports that the oxycodone 5 mg is not assisting with any pain relief. [facility] Medical History COVID-19 Skin cancer Arthritis Back pain Kidney stones Cardiomyopathy Diverticulosis Severe obesity Seasonal allergies Plaque psoriasis Pulmonary nodules Hypercholesterolemia GERD (gastroesophageal reflux disease) Depression CAD (coronary artery disease) CKD (chronic kidney disease), stage III KALE (obstructive sleep apnea) Heart attack Internal derangement of left knee Hyperlipidemia Hypertension Diabetes Surgical History Hx of left knee surgery Hx of local excision of skin lesion History of esophagogastroduodenoscopy (EGD) H/O colonoscopy H/O heart artery stent Hx of cholecystectomy Social History Household Members: Spouse Housing: House Are you a primary care center manager to a significant other at home: No Do you presently have visiting nurse or other home services: No Patient Tobacco Use Status: Former Tobacco user Tobacco use type: Cigarette Second Hand Smoke Exposure: No service: No Current occupational status: employed Current occupation: Car [employer] Physical Exam Const General: cooperative, healthy appearing and no acute distress Resp Effort & Inspection: normal respiratory effort and able to speak in complete sentences Extrem Other: Right knee incision site is clean dry and intact. [place] intact. No surrounding erythema or drainage. No signs of infection. Range of motion 0 to 90 degrees. NVI. Assessment & Plan Assessment & Plan (1) Osteoarthritis of left knee: Code(s): M17.12 - Unilateral primary osteoarthritis, left knee Category: Medical Plan Mr. Holguin is a 69-year-old male who presents to the office today status post left unicompartment (medial) knee arthroplasty performed on 11/18/[address] Hu. Patient states that he is experiencing a great deal of pain after surgery. He reports that the oxycodone 5 mg is not assisting with any pain relief. He is using a cane to assist with ambulation. He reports that he would like to file a complaint with the anesthesiologist administering his nerve block. He states that it took multiple attempts for the nerve block. I explained that is a very small space that the anesthesiologist needs to administer this medication and sometimes it can be very difficult depending on level of arthritis and or spinal stenosis that a patient may have. Additionally, he reports that his preoperative appointment at [facility] for medical clearance was not thorough and was displeased with the process. While in the office today, elicia were removed and Steri-Strips were applied. The patient was encouraged to attend outpatient physical therapy. An outpatient physical therapy order has been placed at this time. A prescription for oxycodone 10 mg p.o. q.4-6 hours p.r.n. pain number 42 was sent to the patient's pharmacy. Patient was also complaining of urinary retention postoperatively. I did consult with Dr. Eason and sent a prescription for Flomax 0.4 mg p.o. daily 14.. If patient continues to have difficulty with urinary retention we will place a formal consult for the patient to be seen with Dr. Eason in office for further assessment. He will follow up in [address] Hu, sooner if needed. Medications: New tamsulosin (Flomax) 0.4 mg PO DAILY 14 caps 0RF Changed From oxycodone Partial Fill upon patient request. 5 mg PO Q4-6H 7 days PRN 42 tabs 0RF pain Z96.652 - Presence of left artificial knee joint To oxycodone Partial Fill upon patient request. 10 mg PO Q4-6H PRN 42 tabs 0RF pain 7 days Z96.652 - Presence of left artificial knee joint Coding Level of Care Code Global (49997) Diagnoses Osteoarthritis of left knee M17.12
== END 2024-12-04 16:04 | disposition home or self-care (01) ==
LOC: HO.HOS 15:03
PROVIDERS: PCP Internal Medicine; Visit Provider Physician Assistant
DX: M17.12 Unilateral primary osteoarthritis, left knee (principal)
CPT/HCPCS: 99024

== ENCOUNTER 2024-12-25 12:48 | Outpatient (AMB) | payer BC, SELFPAY ==
--- NOTE | 2024-12-25 12:55 | A.OFFVIS_ITS ---
Intake Visit Reasons: 6WKPO: Dorothy SALVADOR w/NE 11/18/24 Intake Note: Moreno is a 69 year old male who presents today for a post operative appointment about 5 weeks s/p Left [facility] 11/18/24. At his first post op he expressed concerns for multiple attempts at nerve block by the anesthesiologist, he filed a complaint. His contacted the office expressing concerns that he has reported significant amounts of pain, fatigue/lethargy and dizzyness, Nausea/Pain and weight loss- he was instructed to consult his pcp to inquire ab out labs for h&h levels. He was seen at an urgent care for his nausea and discomfort - he was placed on medication for his acid reflux which has seemed to improve his symptoms. He currently complains of significant pain of the left knee. He is not taking Oxycodone as he feel that this contributed to his upset stomach. Because of this he is only taking tylenol for his pain which is not helping. He also expresses hoarsness of his voice and discomfort in his throat since surgery. Allergies No Known Allergies Allergy (Verified 12/04/24 15:30) HPI HPI 6WKPO: Dorothy SALVADOR w/NE 11/18/24: Details: Moreno is a 69 year old male who presents today for a post operative appointment about 5 weeks s/p Left A 11/18/24. At his first post op he expressed concerns for multiple attempts at nerve block by the anesthesiologist. His contacted the office expressing concerns that he has reported significant amounts of pain, fatigue/lethargy and dizzyness, Nausea/Pain and weight loss- he was instructed to consult his pcp to inquire about labs for h&h levels. He was seen at an urgent care for his nausea and discomfort - he was placed on medication for his acid reflux which has seemed to improve his symptoms. He currently complains of significant pain of the left knee. He is not taking Oxycodone as he feel that this contributed to his upset stomach. Because of this he is only taking tylenol for his pain which is helping. Overall he does state that he is improving. His pain prior to the surgery is much better than it was and he feels like he has turned a corner since he stopped taking the oxycodone but he has had a difficult postop course. [facility] Medical History COVID-19 Skin cancer Arthritis Back pain Kidney stones Cardiomyopathy Diverticulosis Severe obesity Seasonal allergies Plaque psoriasis Pulmonary nodules Hypercholesterolemia GERD (gastroesophageal reflux disease) Depression CAD (coronary artery disease) CKD (chronic kidney disease), stage III KALE (obstructive sleep apnea) Heart attack Internal derangement of left knee Hyperlipidemia Hypertension Diabetes Surgical History Hx of left knee surgery Hx of local excision of skin lesion History of esophagogastroduodenoscopy (EGD) H/O colonoscopy H/O heart artery stent Hx of cholecystectomy Social History Household Members: Spouse Housing: House Are you a primary healthcare network consultant to a significant other at home: No Do you presently have visiting nurse or other home services: No Patient Tobacco Use Status: Former Tobacco user Tobacco use type: Cigarette Second Hand Smoke Exposure: No service: No Current occupational status: employed Current occupation: Car Sales Physical Exam Extrem Other: On exam his incision is clean dry and intact and he is walking comfortably. Results Reviewed Results Reviewed: I personally reviewed relevant radiographs. Left unicompartmental knee arthroplasty in expected post operative position with no hardware complications or evidence of loosening Assessment & Plan Assessment & Plan (1) Status post unicompartmental knee replacement: Code(s): Z96.659 - Presence of unspecified artificial knee joint Category: Surgical Plan: Moreno had a rough go postoperatively for various reasons. From a surgical perspective his knee is healing well and he is improving and I recommend he continue strengthening and exercising as tolerated. He may see me back in 6 weeks. Orders: Orders XR knee LT 3V 12/25/24 M25.562 - Pain in left knee Coding Level of Care Code Global (03645) Diagnoses Status post unicompartmental knee replacement Z96.659
== END 2024-12-25 13:38 | disposition home or self-care (01) ==
LOC: HO.HOS 12:48
PROVIDERS: PCP Internal Medicine; Visit Provider Orthopaedic Surgery
DX: Z96.659 Presence of unspecified artificial knee joint (principal)
CPT/HCPCS: 99024

== ENCOUNTER 2024-12-25 12:48 | Outpatient (REF) | payer BC, SELFPAY ==
--- NOTE | ~2024-12-25 | XR_ITS ---
EXAMINATION: XR KNEE, LEFT CLINICAL INFORMATION: M25.562 - Pain in left knee COMPARISON: None available. TECHNIQUE: Three views of the left knee. FINDINGS: Medial compartment arthroplasty has been performed. There is no hardware loosening. Moderate marginal osteophytes are present in the superior patellofemoral joint. Minimal osteophytes are present along the lateral joint line. There is a joint effusion. XR/XR knee LT 3V IMPRESSION: Medial compartment arthroplasty. Joint effusion. Osteoarthritis is most advanced in the patellofemoral joint. Electronically signed by: Renato Jimenes MD 12/25/2024 01:57 PM EDT
--- OUTSIDE RECORDS SUMMARY | 2024-12-25 13:18 | XMS_ITS | Encounter Summary ---
Author Organization [facility] Address [address] [place] [address] Phone Care Team Providers Care Bull Gang Worker Name Role Phone Lane Loyd MD Primary Care Provider [phone] Encounter Details Date Type Department Care Team (Late st Contact Info) Description 08/13/2023 Documentation Only [facility], [address] [place] [address] [place] [address] [place] [id number] Social History Tobacco Use Types Packs/Day Years [...] on filedocumented in this encounter Care Teams Bull Gang Worker Relationship Specialty Start Date End Date Lane Loyd MD [address] [place] [address] PCP - General Internal Medicine 08/13/23 documented as of this encounter
== END 2024-12-25 12:49 | disposition home or self-care (01) ==
LOC: HO.HOSX 12:48
PROVIDERS: PCP Internal Medicine; Visit Provider Orthopaedic Surgery
DX: M25.562 Pain in left knee (principal); Z96.652 Presence of left artificial knee joint; Z47.1 Aftercare following joint replacement surgery
CPT/HCPCS: 73562

== ENCOUNTER → 2024-12-25 12:55 | Outpatient (BNV) | payer BC, SELFPAY | PROVIDERS: PCP Internal Medicine; Visit Provider Radiology Diagnostic Radiology | DX: M25.762 Osteophyte, left knee (principal) | CPT/HCPCS: 73562 ==

== ENCOUNTER 2025-01-30 09:55 | Outpatient (REF) | payer BC, SELFPAY ==
--- OUTSIDE RECORDS SUMMARY | 2025-01-25 23:59 | XMS_ITS | Continuity of Care Document ---
Author Organization [facility] Address [address] [place] [address]- Care Team Providers Care Campaign Manager Name Role Phone Rach CAMP, Lane W Primary Care Physician [phone] Encounter [facility] Date(s): 12/26/24 - 01/25/25 [facility] [address] [place] [id number]- Attending Physician: Porfirio Carter Admitting Physician: Porfirio [...] 07/21/07 Given 1Admin Note: [facility] [id number] 2Location History: Jazmin Anna 3Result Comment: [10/21/2013] Jazmin Anna 4Admin Note: VIS 12/11/2011 5Admin Note: DECLINED 6Admin Note: historical data Medications 14 Day Clayton Sensor 14 Day Clayton Sensor, See Instructions, # 2 each, Refills 5, Tot. Refills 5, Maintenance, E11.65. change sensor every 14 days, 11/13/23 1:05:00 PM EDT, Compound, 175, cm, 09/21/23 12:20:00 EDT, Height, 106, kg, 09/06/22 21:01:00 EDT, Dry Weight Start Date: 11/13/23 Status: Ordered Quantity: 2.0 Unit: each Repeat number: 6 amLODIPine 10 mg oral tablet 1 tablet, By Mouth, Daily, # 30 tablet, 5 Refills, Maintenance, 11/11/24 1:33:00 PM EDT, [facility], 173, cm, 10/21/24 7:39:00 EDT, Height, 103.8, kg, 07/02/24 11:01:00 EST, Dry Weight Start Date: 11/11/24 Status: Ordered Quantity: 30.0 Unit: tablet Repeat number: 6 Aspirin Low Dose 81 mg oral delayed release tablet 1 tablet = 81 mg, By Mouth, Daily, 0 Refills, Maintenance, 06/05/24 12:02:00 PM EST, Partial fill upon patient request if the prescription is for a schedule II opioid drug. Start Date: 06/05/24 Status: Ordered Repeat number: 1 atorvastatin 40 mg oral tablet 1 tablet, By Mouth, Daily, # 30 tablet, 11 Refills, Maintenance, 03/17/24 7:56:00 AM EDT, [facility], 175, cm, 01/14/24 9:00:00 EDT, Height, 106, kg, 09/06/22 21:01:00 EDT, Dry Weight Start Date: 03/17/24 Status: Ordered Quantity: 30.0 Unit: tablet Repeat number: 1 BD PEN NEEDLE MINI 31G X 5 MM MISC BD PEN NEEDLE MINI 31G X 5 MM MISC, See Instructions, # 200 each, 8 Refills, Maintenance, USE FOUR TIMES A DAY TO INJECT INSULIN, 07/07/24 9:40:00 AM EST, 173, cm, 07/02/24 11:01:00 EST, Height, 103.8, kg, 07/02/24 11:01:00 EST, Dry Weight Start Date: 07/07/24 Status: Ordered Quantity: 200.0 Unit: each Repeat number: 1 carvedilol 25 mg oral tablet 1, tablet, By Mouth, 2 times a day, # 60 tablet, Refills 11, Maintenance, 03/17/24 7:56:00 AM EDT, Route to Pharmacy Electronically, [facility], 175, cm, 01/14/24 9:00:00 EDT, Height, 106, kg,09/06/22 21:01:00 EDT, Dry Weight Start Date: 03/17/24 Status: Ordered Quantity: 60.0 Unit: tablet Repeat number: 1 dexamethasone/neomycin/polymyxin B ophthalmic 1 mg-3.5 mg-74703 u/ml suspension 1 drops, Eyes, Both, Every 4 hours, # 5 mL, 0 Refills, Maintenance, 10/21/24 7:49:00 AM EDT, Suspension, Partial fill upon patient request if the prescription is for a schedule II opioid drug. Start Date: 10/21/24 Stop Date: 10/28/24 Status: Ordered Quantity: 5.0 Unit: mL Repeat number: 1 Freestyle Clayton 3 sensors Freestyle Clayton 3 sensors, See Instructions, # 6 each, Refills 3, Tot. Refills 3, Maintenance, change every 14 days. E11.9, 04/17/24 10:11:00 AM EST, Supply, 175, cm, 04/17/24 10:02:00 EST, Height, 106, kg, 09/06/22 21:01:00 EDT, Dry Weight Start Date: 04/17/24 Status: Ordered Quantity: 6.0 Unit: each Repeat number: 4 Humalog Kwik Pen 100 units/mL subcutaneous injection See Instructions, t2dm, brand name only per insurance preference, Humalog sliding scale with meals as follows: 15 units at 100-150 19 units at 151-200 23 units at 201-250 27 units at 251-300 31 unitsat 301-350 35 units at 351-400 39 units if >400, # 30 mL, 11 Refills, Maintenance, 11/21/23 2:49:00 PM EDT, [facility], E11.65; [place] yes and Brand Name Medically Necessary, 175, cm, 11/21/23 14:23:00 EDT, Height, 106, kg, 09/06/22 21:01:00 EDT, Dry Weight Start Date: 11/21/23 Status: Ordered Quantity: 30.0 Unit: mL Repeat number: 12 Humira Pen 40 mg/0.8 mL subcutaneous solution administered every 2 weeks, Maintenance, 03/18/20 9:29:00 PM EDT Start Date: 03/18/20 Status: Ordered Repeat number: 1 Jardiance 25 mg oral tablet 1 tablet, By Mouth, Daily in AM, # 30 tablet, 3 Refills, Maintenance, 11/06/24 12:27:00 PM EDT, [facility], 173, cm, 10/21/24 7:39:00 EDT, Height, 103.8, kg, 07/02/24 11:01:00 EST, Dry Weight Start Date: 11/06/24 Status: Ordered Quantity: 30.0 Unit: tablet Repeat number: 1 Lant Solostar Pen 100 units/mL subcutaneous solution = 50 units, Subcutaneous Infusion, Daily at bedtime, # 30 mL, 6 Refills, Maintenance, 11/21/23 2:49:00 PM EDT, [facility], E11.65, 175, cm, 11/21/23 14:23:00 EDT, Height, 106, kg, 09/06/22 21:01:00 EDT, Dry Weight Start Date: 11/21/23 Status: Ordered Quantity: 30.0 Unit: mL Repeat number: 7 lisinopril 40 mg oral tablet 1 tablet, By Mouth, Daily, # 90 tablet, 1 Refills, Maintenance, 09/17/24 12:54:00 PM EDT, [facility], 173, cm, 07/02/24 11:01:00 EST, Height, 103.8, kg, 07/02/24 11:01:00 EST, Dry Weight Start Date: 09/17/24 Status: Ordered Quantity: 90.0 Unit: tablet Repeat number: 1 Mucinex DM Max Strength oral tablet, extended release 1 tablet, By Mouth, 2 times a day, PRN Cough and Congestion, # 14 tablet, 0 Refills, Maintenance, 05/23/24 3:22:00 PM EST, ER Tablet, [facility], Partial fill upon patient request if the prescription is for a schedule II opioid drug., 1 tablet By Mouth 2 times a day,PRN:Cough and Congestion, 175, cm, 05/23/24 14:58:00 EST, Height, 106, kg, 09/06/22 21:01:00 EDT, Dry Weight Start Date: 05/23/24 Status: Ordered Quantity: 14.0 Unit: tablet Repeat number: 1 Indications: Cough, unspecified; Multi Vitamin+ 0 Refills, Maintenance, 12/08/20 8:24:00 AM EDT, Partial fill upon patient request if the prescription is for a schedule II opioid drug. Start Date: 12/08/20 Status: Ordered Repeat number: 1 [place]-3 1000 mg oral capsule 1 capsule = 1,000 mg, By Mouth, 2 times a day, # 60 capsule, 5 Refills, Maintenance, 03/27/22 10:07:00 AM EDT, [facility], Partial fill upon patient request if the prescription is for a schedule II opioid drug., 174.6, cm, 02/22/22 13:26:00 EDT, Height Start Date: 03/27/22 Stop Date: 09/23/22 Status: Ordered Quantity: 60.0 Unit: capsule Repeat number: 6 Ozempic 2 mg/3 mL (0.25 mg or 0.5 mg dose) subcutaneous solution = 0.5 mg, Subcutaneous Injection, Every week, # 13 each, 3 Refills, Maintenance, 04/17/24 10:11:00 AM EST, [facility], 175, cm, 04/17/24 10:02:00 EST, Height, 106, kg, 09/06/22 21:01:00 EDT, Dry Weight Start Date: 04/17/24 Stop Date: 04/12/25 Status: Ordered Quantity: 13.0 Unit: each Repeat number: 4 pantoprazole 40 mg oral delayed release tablet 1 tablet = 40 mg, By Mouth, 2 times a day, must keep appt, # 28 tablet, 0 Refills, Maintenance, 01/21/25 8:52:00 AM EDT, CR Tablet, 173, cm, 12/26/24 13:30:00 EDT, Height, 103.8, kg, 07/02/24 11:01:00EST, Dry Weight Start Date: 01/21/25 Stop Date: 02/04/25 Status: Ordered Quantity: 28.0 Unit: tablet Repeat number: 1 pantoprazole 40 mg oral delayed release tablet 1 tablet = 40 mg, By Mouth, Daily, for 30 days, # 30 tablet, 5 Refills, Acute 05/05/25 11:00:00 AM EST, 11/06/24 11:00:00 AM EDT, EC Tablet, 173, cm, 10/21/24 7:39:00 EDT, Height, 103.8, kg, 07/02/24 11:01:00 EST, Dry Weight Start Date: 11/06/24 Stop Date: 05/05/25 Status: Ordered Quantity: 30.0 Unit: tablet Repeat number: 6 Indications: Encounter for screening for malignant neoplasm of colon; Type 2 diabetes mellitus without complications; Pen [place], 31 G x 5 mm BD Ultra Fine III See Instructions, # 200 each, Refills 8, Tot. Refills 8, Maintenance, 4 X A DAY INJECTION, 08/03/24 2:13:00 PM EST, E11.65, Compound, 175, cm, 05/30/23 13:15:00 EST, Height, 106, kg, 09/06/22 21:01:00EDT, Dry Weight Start Date: 08/03/24 Stop Date: 10/22/26 Status: Ordered Quantity: 200.0 Unit: each Repeat number: 9 Indications: Type 2 diabetes mellitus without complications; Problem List Condition Confirmation Course Effective Dates Status Health Status Informant Atypical chest pain - Gastirc/esophageal in origin wth good response to pantoprazole. Confirmed Active Chronic kidney disease (CKD), stage III (moderate) Confirmed Active Colon, diverticulosis 1 Confirmed 03/04/12 Active Coronary artery disease-PTCA/2 stents for MT 2002 Confirmed Active Depression Confirmed Active Diabetes [...] Team Personnel Name: Giovani Rider DO Position: [facility] Renal MD Member Role: Lifetime Consulting Physician Address: [address] [place] [address] [address]E [facility] [address] Telecom: Name: Eusebia Garrett RN Position: S RN Member Role: Primary Care Nurse Name: Norberto Mejia RN Position: S RN Member Role: Primary Care Nurse Name: Lane Loyd MD Position: [facility] Physician - Primary Care Member Role: PCP Address: [address] [place] [address] [place] [address]- Telecom: Name: Sylvie Mario RN, I Position: S RN Member Role: Primary Care Nurse Care Team Related Persons Name: JANICE DOAN Name: TUCKER MCKENZIE Name: TUCKER LEWIS Insurance Providers Guarantor name: WALI LEWIS [employer] Plan Information #: 1 Payer: [employer] [facility] Payer Identifier: NA Member Number: [id number] Group Number: [id number] Subscriber Identifier: [id number] Relationship to Subscriber: Spouse Coverage Type: NA Coverage Verification Date: NA Telecom: Address:
--- OUTSIDE RECORDS SUMMARY | 2025-01-30 09:59 | XMS_ITS | Encounter Summary ---
Author Organization [facility] Address [address] [place] [address] Phone Care Team Providers Care Display Director Name Role Phone Lane Loyd MD Primary Care Provider [phone] Encounter Details Date Type Department Care Team (Late st Contact Info) Description 08/13/2023 Documentation Only [facility], [address] [place] [address] [place], [place] [address] [place] [phone] Social History Tobacco Use Types Packs/Day Years [...] on filedocumented in this encounter Care Teams Display Director Relationship Specialty Start Date End Date Lane Loyd MD [address] [place] [address] PCP - General Internal Medicine 08/13/23 documented as of this encounter
[2025-01-30 11:08] LABS: Estimated Glomerular Filt Rate 56
[2025-01-30 11:46] LABS: Creatinine, mg/dL 78.53
[2025-01-30 11:51] LABS: Total Volume 24 Hour Urine 1275 mL
[2025-01-30 11:52] LABS: Creatinine (CrCl) 1.26 mg/dL (0.5-1.4)
== END 2025-01-30 09:56 | disposition home or self-care (01) ==
LOC: HO.LAB 09:55
PROVIDERS: Visit Provider Internal Medicine Nephrology
DX: N18.31 Chronic kidney disease, stage 3a (principal)
CPT/HCPCS: 36415; 82565; 82575; 84156

== ENCOUNTER 2025-02-05 13:03 | Outpatient (AMB) | payer BC, SELFPAY ==
--- NOTE | 2025-02-05 13:07 | MHC.OFFVIS ---
Intake Visit Reasons: PO - Left [facility]A 11/18/24 Intake Note: Moreno is a 69 year old male who presents today for a post operative appointment about 2 months s/p Left [facility] 11/18/24. Patient reports that he is doing better, he is having neuropathy of the lower leg that is improving. He is working with Physical Therapy at [facility] in [place], he has increased pain after these appointments but this resolves on its own. Allergies oxycodone Adverse Reaction (Verified 02/05/25 13:17) Stomach Upset HPI HPI PO - Left [facility] 11/18/24: Details: Moreno is a 69 year old male who presents today for a post operative appointment about 2 months s/p Left [facility] 11/18/24. Patient reports that he is doing better, he is having neuropathy of the lower leg that is improving. He is working with Physical Therapy at [facility] in [place], he has increased pain after these appointments but this resolves on its own. Overall he feels like he has improved significantly. He would like to go back to work. [facility] Medical History COVID-19 Skin cancer Arthritis Back pain Kidney stones Cardiomyopathy Diverticulosis Severe obesity Seasonal allergies Plaque psoriasis Pulmonary nodules Hypercholesterolemia GERD (gastroesophageal reflux disease) Depression CAD (coronary artery disease) CKD (chronic kidney disease), stage III KALE (obstructive sleep apnea) Heart attack Internal derangement of left knee Hyperlipidemia Hypertension Diabetes Surgical History Hx of left knee surgery Hx of local excision of skin lesion History of esophagogastroduodenoscopy (EGD) H/O colonoscopy H/O heart artery stent Hx of cholecystectomy Social History Household Members: Spouse Housing: House Are you a primary career developer to a significant other at home: No Do you presently have visiting nurse or other home services: No Patient Tobacco Use Status: Former Tobacco user Tobacco use type: Cigarette Second Hand Smoke Exposure: No service: No Current occupational status: employed Current occupation: Car Sales Physical Exam Extrem Other: Incision clean dry and intact. No effusion. Full range of motion. He is walking well. Assessment & Plan Assessment & Plan (1) Status post unicompartmental knee replacement: Code(s): Z96.659 - Presence of unspecified artificial knee joint Category: Surgical Plan: Moreno is 3 months status post left [facility]. Overall he is doing well. He has been complaining of some dizziness that is improving but it feels unusual in his stomach is still upset from surgery and some of the postoperative effects of opioids. He states he is getting better but it has taken him a long time. I think it is reasonable for him to remain out of work for 1 more month. I also made a referral to Neurology. Orders: Referrals Neurology Referral R42 - Dizziness and giddiness Coding Level of Care Code Global (66346) Diagnoses Status post unicompartmental knee replacement Z96.659
--- OUTSIDE RECORDS SUMMARY | 2025-02-05 13:42 | XMS_ITS | Encounter Summary ---
Author Organization [facility] Address [address] [place] [address] Phone Care Team Providers Care Ramp Manager Name Role Phone Lane Loyd MD Primary Care Provider [phone] Encounter Details Date Type Department Care Team (Late st Contact Info) Description 08/13/2023 Documentation Only [facility], [address] [place] [address] [place] [address] [place] [phone] Social History Tobacco Use Types Packs/Day Years [...] on filedocumented in this encounter Care Teams Ramp Manager Relationship Specialty Start Date End Date Lane Loyd MD [address] [place] [address] PCP - General Internal Medicine 08/13/23 documented as of this encounter
--- OUTSIDE RECORDS SUMMARY | 2025-02-05 13:42 | XMS_ITS | Clinical Summary ---
Author Organization [facility] Address [address] [place] [address] Care Team Providers Care Copier Field Service Technician Name Role Phone Lane Loyd MD Primary Care Provider [phone] Allergies No known active allergies Medications No [...] Diabetes: Visual Foot Exam 12/18/2023 Influenza Vaccine (#1) 2025 03/01/2011 Hepatitis B Vaccine Aged Out No longe r eligible based on patient's age to complete this topic Insurance [facility] Care Teams Copier Field Service Technician Relationship Specialty Start Date End Date Lane Loyd MD [address] [place] [address] PCP - General Internal Medicine 08/13/23
== END 2025-02-05 14:00 | disposition home or self-care (01) ==
LOC: HO.HOS 13:03
PROVIDERS: PCP Internal Medicine; Visit Provider Orthopaedic Surgery
DX: Z96.659 Presence of unspecified artificial knee joint (principal)
CPT/HCPCS: 99024